=== PATIENT | male | born 1930 | race Caucasian/White ===

== ENCOUNTER 2017-01-14 15:29 | Observation (INO) | payer MEDICARE, BC ==
--- NOTE | 2017-01-14 15:46 | EDM.PDOC ---
ED HPI GENERAL MEDICAL PROBLEM - General Chief Complaint: Respiratory Problem Stated Complaint: TROUBLE BREATHING Time Seen by Provider: 01/14/17 15:46 Source of Information: Reports: Patient, Family History Limitations: Reports: No Limitations - History of Present Illness Onset: Other (short of breath today. no fevers/chllls. no chest pain. no swelling in lower ext. no cough. no change in meds.) Duration: Other (family states he "occasionally has these episodes". he had a stress test in Aug 2016 and lexiscan 08/2016 which showed no acute changes.) - Related Data Allergies Allergy/AdvReac Type Severity Reaction Status Date / Time alprazolam Allergy Other Verified 01/14/17 15:36 tamsulosin [From Flomax] AdvReac Dizziness Verified 01/14/17 15:36 Home Meds: Home Meds Aspirin [Halfprin] 81 mg PO DAILY 08/20/16 [History] Carbidopa/Levodopa [Carbidopa-Levodopa 25-250] 1.5 tab PO 08/20/16 [ History] Cyanocobalamin (Vitamin B-12) [B-12] 1 injection INJECT .EVERY 30 DAYS 08/20/16 [History] Docusate Sodium [Colace] 100 mg PO BID 08/20/16 [History] Escitalopram [Lexapro] 20 mg PO DAILY 08/20/16 [History] Mirtazapine [Mirtazapine] 2 tab PO BEDTIME 08/20/16 [History] Omeprazole 20 mg PO BID 08/20/16 [History] Polyethylene Glycol 3350 [Miralax] 17 g PO DAILY 08/20/16 [History] Simvastatin [Simvastatin] 20 mg PO BEDTIME 08/20/16 [History] busPIRone [Buspar] 20 mg PO BID 08/20/16 [History] hydrOXYzine HCl [Atarax] 25 mg PO TID PRN 08/20/16 [History] Past Medical History Other HEENT History: 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 Cardiovascular History: Reports: High Cholesterol, Hypertension, Pacemaker Respiratory History: Reports: None Gastrointestinal History: Reports: GERD, PUD, Other (See Below) Other Gastrointestinal History: HX OF HAIR ESOPHAGUS Genitourinary History: Reports: None Musculoskeletal History: Reports: Arthritis, Other (See Below) Other Musculoskeletal History: DEGENERATIVE JOINT DISEASE Neurological History: Reports: Head Trauma, Parkinson's Psychiatric History: Reports: Anxiety Endocrine/Metabolic History: Reports: None Hematologic History: Reports: Anemia Immunologic History: Reports: None Oncologic (Cancer) History: Reports: None Dermatologic History: Reports: None - Infectious Disease History Infectious Disease History: Reports: Chicken Pox, Measles, Mumps - Past Surgical History Cardiovascular Surgical History: Reports: Pacer, Other (See Below) Male Surgical History: Reports: TURP-Transurethral Resection of Prostate Social & Family History - Family History Family Medical History: Noncontributory - Tobacco Use Smoking Status *Q: Never Smoker - Caffeine Use Caffeine Use: Reports: Coffee - Recreational Drug Use Recreational Drug Use: No - Living Situation & Occupation Living situation: Reports: , with Spouse Occupation: Retired ED ROS GENERAL - Review of Systems Review Of Systems: See Below Constitutional: Reports: No Symptoms HEENT: Reports: No Symptoms Respiratory: Reports: Shortness of Breath Cardiovascular: Reports: No Symptoms Endocrine: Reports: No Symptoms GI/Abdominal: Reports: No Symptoms : Reports: No Symptoms Musculoskeletal: Reports: No Symptoms Skin: Reports: No Symptoms Neurological: Reports: No Symptoms Psychiatric: Reports: No Symptoms Hematologic/Lymphatic: Reports: No Symptoms Immunologic: Reports: No Symptoms ED EXAM, GENERAL - Physical Exam Exam: See Below Exam Limited By: No Limitations General Appearance: Alert Ears: Normal External Exam, Normal Canal, Hearing Grossly Normal, Normal TMs Nose: Normal Inspection, Normal Mucosa Throat/Mouth: Normal Inspection, Normal Lips, Normal Teeth, Normal Gums, Normal Oropharynx Head: Atraumatic, Normocephalic Neck: Normal Inspection, Supple, Non-Tender Respiratory/Chest: No Respiratory Distress, Lungs Clear, Normal Breath Sounds, No Accessory Muscle Use, Chest Non-Tender Cardiovascular: Normal Peripheral Pulses, Regular Rate, Rhythm GI/Abdominal: Normal Bowel Sounds, Soft, Non-Tender Back Exam: Normal Inspection Extremities: Normal Inspection, Normal Range of Motion, Non-Tender, No Pedal Edema Neurological: Alert, Oriented Psychiatric: Normal Affect Skin Exam: Warm, Dry, Intact, Normal Color Lymphatic: No Adenopathy EKG INTERPRETATION EKG Interpretation Comments: atrial paced rate 71, prolonged SC interval 262 Course - Vital Signs Text/Narrative:: Discussed with Dr. Solorzano, hospitalist, pt will be admitted obs for dyspnea. risk factors: prior CAD with pacemaker. Last Recorded V/S: Last Vital Signs Temp 36.2 C 01/14/17 15:46 Pulse 69 01/14/17 15:46 Resp 18 01/14/17 15:46 BP 107/62 01/14/17 15:46 Pulse Ox 100 01/14/17 15:46 - Orders/Labs/Meds Orders: Active Orders 24 hr Category Date Time Status EKG 12 Lead [EKG Documentation Completion] [RC] URGENT Care 01/14/17 15:53 Active Labs: Laboratory Tests 01/14/17 01/14/17 Range/Units 16:12 16:12 WBC 5.4 (5.0-10.0) 10^3/uL RBC 3.97 L (4.6-6.2) 10^6/uL Hgb 12.1 L (14.0-18.0) g/dL Hct 36.4 L (40.0-54.0) % MCV 91.7 (80-100) fL MCH 30.5 (27.0-34.0) pg MCHC 33.2 (33.0-35.0) g/dL Plt Count 154 (150-450) 10^3/uL Neut % (Auto) 53.6 (42.2-75.2) % Lymph % (Auto) 29.1 (20.5-50.1) % [place] % (Auto) 13.2 H (2-8) % Eos % (Auto) 3.7 H (1.0-3.0) % Baso % (Auto) 0.4 (0.0-1.0) % Sodium 138 (135-145) mmol/L Potassium 4.2 (3.6-5.0) mmol/L Chloride 105 (101-111) mmol/L Carbon Dioxide 25.0 (21.0-31.0) mmol/L Anion Gap 12.2 BUN 25 H (7-18) mg/dL Creatinine 1.2 (0.6-1.3) mg/dL Est Cr Clr Drug Dosing 54.77 mL/min Estimated GFR (MDRD) 58 BUN/Creatinine Ratio 20.83 Glucose 114 H (74-105) mg/dL Calcium 8.8 (8.4-10.2) mg/dl Total Bilirubin 0.4 (0.2-1.0) mg/dL AST 22 (10-42) IU/L ALT 8 L (10-60) IU/L Alkaline Phosphatase 51 (42-121) IU/L Troponin I < 0.02 (0.00-0.02) ng/ml B-Natriuretic Peptide 70 (0-100) pg/ml Total Protein 6.1 L (6.7-8.2) g/dl Albumin 3.9 (3.2-5.5) g/dl Globulin 2.2 Albumin/Globulin Ratio 1.77 Departure - Departure Time of Disposition: 17:06 Disposition: Refer to Observation Condition: good Clinical Impression: Dyspnea - Discharge Information Forms: ED Department Discharge - My Orders Last 24 Hours: My Active Orders 01/14/17 15:53 EKG 12 Lead [EKG Documentation Completion] [RC] URGENT - Assessment/Plan Last 24 Hours: My Active Orders 01/14/17 15:53 EKG 12 Lead [EKG Documentation Completion] [RC] URGENT
[2017-01-14 16:39] LABS: CHLORIDE,CL 105 mmol/L (101-111); SODIUM,NA 138 mmol/L (135-145)
--- NOTE | 2017-01-14 16:43 | CR ---
Clinical history: 86-year-old male complaining of shortness of breath. Interpretation: PA lateral chest reveals hypertrophic spondylosis and mildly kyphotic, scoliotic spine. Cardiac pacemaker (leads intact). Normal cardiac silhouette without alveolar edema or dependent effusion. No lung mass, hilar lymphadenopathy or focal lobar pneumonia. No atelectasis/collapse. No pneumothorax. CONCLUSION: No acute cardiopulmonary abnormality.
[2017-01-14] MEDS ORDERED: hydrOXYzine HCl 25 MG Tab PO PRN (18:18)
[2017-01-14] MEDS ORDERED: Acetaminophen 325 MG Tab PO PRN (18:25)
[2017-01-14] MEDS ORDERED: Sodium Chloride 0.9% 10 ML Syringe FLUSH PRN (18:25)
--- NOTE | 2017-01-14 18:33 | PCM.HP ---
H&P History of Present Illness - General Date of Service: 01/14/17 Admit Problem/Dx: Admission Diagnosis/Problem Admission Diagnosis/Problem Dyspnea Source of Information: Patient, Family () - History of Present Illness Initial Comments - Free Text/Narative: the patient is an 86-year-old gentleman with a history of advanced Parkinson's disease, anxiety, prior pacemaker placement. he has been followed by neurology for Parkinson's disease and Dr. Scott and more recently dr. García and from cardiology for his heart. The patient has been complaining of episodes of shortness of breath. the is giving most of the history the patient has very weak voice do to his Parkinson's disease. this has been his baseline according to the . These episodes of shortness of breath has been happening for months, was evaluated by cardiology and felt that the patient is doing well. There is no associated chest pain, fever or chills.no obvious exacerbating factors. Today the patient was sitting in a chair when he was complaining of shortness of breath with the . This lasted about an hour and has completely resolved since. There is no leg swelling, and no associated symptoms. The patient has history of anxiety and the has felt that this might relate to these episodes. - Related Data Allergies/Adverse Reactions: Allergies Allergy/AdvReac Type Severity Reaction Status Date / Time alprazolam Allergy Other Verified 01/14/17 15:36 tamsulosin [From Flomax] AdvReac Dizziness Verified 01/14/17 15:36 Home Medications: Home Meds Aspirin [Halfprin] 81 mg PO DAILY 08/20/16 [History] Carbidopa/Levodopa [Carbidopa-Levodopa 25-250] 1.5 tab PO DAY 08/20/16 [ History] Cyanocobalamin (Vitamin B-12) [B-12] 1 injection INJECT .EVERY 30 DAYS 08/20/16 [History] Docusate Sodium [Colace] 100 mg PO BID 08/20/16 [History] Escitalopram [Lexapro] 20 mg PO DAILY 08/20/16 [History] Mirtazapine [Mirtazapine] 2 tab PO BEDTIME 08/20/16 [History] Omeprazole 20 mg PO BID 08/20/16 [History] Polyethylene Glycol 3350 [Miralax] 17 g PO DAILY 08/20/16 [History] Simvastatin [Simvastatin] 20 mg PO BEDTIME 08/20/16 [History] busPIRone [Buspar] 20 mg PO BID 08/20/16 [History] hydrOXYzine HCl [Atarax] 25 mg PO TID PRN 08/20/16 [History] Past Medical History HEENT History: Reports: Other (See Below) Other HEENT History: 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 Cardiovascular History: Reports: High Cholesterol, Hypertension, Pacemaker Respiratory History: Reports: None Gastrointestinal History: Reports: GERD, PUD, Other (See Below) Other Gastrointestinal History: HX OF HAIR ESOPHAGUS Genitourinary History: Reports: None Musculoskeletal History: Reports: Arthritis, Other (See Below) Other Musculoskeletal History: DEGENERATIVE JOINT DISEASE Neurological History: Reports: Head Trauma, Parkinson's Psychiatric History: Reports: Anxiety Endocrine/Metabolic History: Reports: None Hematologic History: Reports: Anemia Immunologic History: Reports: None Oncologic (Cancer) History: Reports: None Dermatologic History: Reports: None - Infectious Disease History Infectious Disease History: Reports: Chicken Pox, Measles, Mumps - Past Surgical History Cardiovascular Surgical History: Reports: Pacer, Other (See Below) Male Surgical History: Reports: TURP-Transurethral Resection of Prostate Social & Family History - Family History Family Medical History: Noncontributory - Tobacco Use Smoking Status *Q: Never Smoker Used Tobacco, but Quit: No - Caffeine Use Caffeine Use: Reports: Coffee - Recreational Drug Use Recreational Drug Use: No - Living Situation & Occupation Living situation: Reports: , with Spouse Occupation: Retired H&P Review of Systems - Review of Systems: Review Of Systems: See Below General: Denies: Fever, Chills Pulmonary: Reports: Shortness of Breath. Denies: Wheezing, Pleuritic Chest Pain , Cough, Sputum, Hemoptysis Cardiovascular: Denies: Chest Pain, Edema Gastrointestinal: Denies: Abdominal Pain Genitourinary: Denies: Dysuria Psychiatric: Denies: Confusion Neurological: Reports: Gait Disturbance Exam - Exam Exam: See Below - Vital Signs Vital Signs: Last Vital Signs Temp 36.2 C 01/14/17 15:46 Pulse 74 01/14/17 17:06 Resp 18 01/14/17 17:06 BP 138/85 01/14/17 17:06 Pulse Ox 94 L 01/14/17 17:06 Weight: 170 kg - Exam Quality Assessment: No: Supplemental Oxygen General: Alert, Other (Difficult to interact because his voice is very weak, difficult to understand) Neck: Supple Lungs: Clear to Auscultation, Normal Respiratory Effort. No: Decreased Breath Sounds Cardiovascular: Regular Rate, Regular Rhythm Abdomen: Normal Bowel Sounds, Soft Extremities: Normal Inspection. No: Edema Skin: Warm, Dry Neurological: Abnormal Gait (tremor). No: Normal Speech Psychiatric: Alert, Normal Affect, Normal Mood - Patient Data Result Diagrams: 01/14/17 16:12 01/14/17 16:12 EKG INTERPRETATION EKG Date: 01/14/17 Rhythm: other (Atrial paced) *Q Meaningful Use (ADM) - VTE *Q VTE Criteria *Q: - Stroke *Q Stroke Criteria *Q: - AMI *Q AMI Criteria *Q: - Problem List (1) Dyspnea SNOMED Code(s): 284066402 ICD Code: R06.00 - DYSPNEA, UNSPECIFIED Status: Acute Current Visit: Yes Problem List Initiated/Reviewed/Updated: Yes Orders Last 24hrs: Active Orders 24 hr Category Date Time Status Patient Status [ADT] Routine ADT 01/14/17 18:25 Ordered Antiembolic Devices [RC] PER UNIT ROUTINE Care 01/14/17 18:26 Ordered Oxygen Therapy [RC] PRN Care 01/14/17 18:25 Ordered Peripheral IV Care [RC] . DIRECTED Care 01/14/17 18:26 Ordered Telemetry Monitoring [Cardiac Monitoring] [RC] . Care 01/14/17 18:24 Ordered DIRECTED Up With Assistance [RC] ASDIRECTED Care 01/14/17 18:25 Ordered VTE/DVT Education [RC] PER UNIT ROUTINE Care 01/14/17 18:25 Ordered Vital Signs [RC] Q4H Care 01/14/17 18:25 Ordered Regular Diet [DIET] Diet 01/14/17 Breakfast Ordered TROPONIN I [CHEM] AM Lab 01/15/17 05:11 Ordered Acetaminophen [Tylenol] Med 01/14/17 18:25 Ordered 650 mg PO Q4H PRN Aspirin [Halfprin] Med 01/15/17 09:00 Ordered 81 mg PO DAILY Carbidopa/Levodopa [Sinemet 25-250 mg] Med 01/14/17 21:00 Ordered 1.5 tab PO 5XDAY Docusate Sodium [Colace] Med 01/14/17 21:00 Ordered 100 mg PO BID Escitalopram [Lexapro] Med 01/15/17 09:00 Ordered 20 mg PO DAILY Mirtazapine [Remeron] Med 01/14/17 21:00 Ordered 2 tab PO BEDTIME Omeprazole Med 01/14/17 21:00 Ordered 20 mg PO BID Polyethylene Glycol 3350 [MiraLAX] Med 01/15/17 09:00 Ordered 17 gm PO DAILY Simvastatin [Simvastatin] Med 01/14/17 21:00 Ordered 20 mg PO BEDTIME Sodium Chloride 0.9% [Saline Flush] Med 01/14/17 18:25 Ordered 10 ml FLUSH ASDIRECTED PRN busPIRone [Buspar] Med 01/14/17 21:00 Ordered 20 mg PO BID hydrOXYzine HCl [Atarax] Med 01/14/17 18:18 Ordered 25 mg PO TID PRN Antiembolic Hose [OM.PC] Per Unit Routine Oth 01/14/17 18:26 Ordered Peripheral IV Insertion Adult [OM.PC] Routine Oth 01/14/17 18:25 Ordered Saline Lock Insert [OM.PC] Routine Oth 01/14/17 18:25 Ordered Resuscitation Status Routine Resus Stat 01/14/17 18:25 Ordered Medication Orders Acetaminophen (Tylenol) 650 mg PO Q4H PRN PRN Reason: Pain (Mild 1-3)/fever Aspirin (Halfprin) 81 mg PO DAILY MAX Carbidopa/Levodopa (Sinemet 25-250 Mg) 1.5 tab PO 5XDAY MAX Docusate Sodium (Colace) 100 mg PO BID MAX Hydroxyzine HCl (Atarax) 25 mg PO TID PRN PRN Reason: anxiety, itching Mirtazapine (Remeron) mg PO BEDTIME MAX Non-Formulary Medication (Escitalopram [Lexapro]) 20 mg PO DAILY MAX Non-Formulary Medication (Simvastatin [Simvastatin]) 20 mg PO BEDTIME MAX Non-Formulary Medication (Buspirone [Buspar]) 20 mg PO BID MAX Omeprazole (Omeprazole) 20 mg PO BID MAX Polyethylene Glycol (Miralax) 17 gm PO DAILY MAX Sodium Chloride (Saline Flush) 10 ml FLUSH ASDIRECTED PRN PRN Reason: Keep Vein Open Assessment/Plan Comment:: 1.the patient presented with dyspnea Apparently this is not a new complaint, this has been on and off for months. the patient's cardiac workup in the emergency room shows no acute ischemic concern. Given the recent stress test that make it even less likely the monitor the patient on telemetry for arrhythmia, repeat troponin in the morning The shortness of breath I believe most likely relates to the patient's advanced Parkinson's disease. He has a very weak voice, He might benefit from further pulmonary evaluation with pulmonary function test studies. according to the patient and the patient's the patient has no swallowing difficulty. Anxiety is also high on the differential. Will monitor the patient during this admission 2. Parkinson's disease Appears advanced Continue Sinemet, followup with neurology High risk for falling 3. DVT prophylaxis with subcutaneous heparin
[2017-01-14] MEDS: Omeprazole 20 MG Cap.CR PO SCH (19:59)
[2017-01-14] MEDS ORDERED: Mirtazapine 15 MG Tab PO SCH ×2 (21:00)
[2017-01-14] MEDS ORDERED: Simvastatin 10 MG Tab PO SCH (21:00)
[2017-01-14] MEDS: busPIRone 15 MG Tab PO SCH (22:39)
[2017-01-14] MEDS: Carbidopa/Levodopa 25-250 MG Tab PO SCH (22:43)
[2017-01-14] MEDS: Docusate Sodium 100 MG Cap PO SCH (22:45)
[2017-01-15] MEDS ORDERED: Escitalopram 10 MG Tab PO SCH (09:00)
[2017-01-15] MEDS ORDERED: Polyethylene Glycol 3350 Powder 17 GM Packet PO SCH (09:00)
[2017-01-15] MEDS ORDERED: Aspirin 81 MG Tab.EC PO SCH (09:00)
[2017-01-15] MEDS: Omeprazole 20 MG Cap.CR PO SCH (09:27)
[2017-01-15] MEDS: Carbidopa/Levodopa 25-250 MG Tab PO SCH ×3 (09:27→16:01)
[2017-01-15] MEDS: busPIRone 15 MG Tab PO SCH (09:29)
[2017-01-15] MEDS: Docusate Sodium 100 MG Cap PO SCH (09:30)
--- NOTE | 2017-01-15 11:12 | PCM.DCSUM1 ---
Discharge Summary - Hospital Course Free Text/Narrative:: the patient is an 86-year-old gentleman with a history of advanced Parkinson's disease, anxiety, prior pacemaker placement. he has been followed by neurology for Parkinson's disease and Dr. Scott and more recently dr. García and from cardiology. The patient has been complaining of episodes of shortness of breath. These episodes of shortness of breath has been happening for months, was evaluated by cardiology and felt that the patient is doing well. There is no associated chest pain, fever or chills.no obvious exacerbating factors. on the day of admission the patient was sitting in a chair and he was complaining of shortness of breath with the . This lasted about an hour and has completely resolved without intervention. There Wagner no leg swelling, and no associated symptoms. The patient has history of anxiety and the has felt that this might relate to these episodes. 1.the patient presented with dyspnea Apparently this is not a new complaint, this has been on and off for months. the patient's cardiac workup showed no acute ischemic concern. Given the recent stress test that make it even less likely The shortness of breath I believe most likely relates to the patient's advanced Parkinson's disease. He has a very weak voice, He might benefit from further pulmonary evaluation with pulmonary function test studies. according to the patient and the patient's the patient has no swallowing difficulty. Anxiety is also high on the differential. I recommended the patient to followup with his primary care physician and then I would suggest further pulmonary function testing. 2. Parkinson's disease Appears advanced Continue Sinemet, followup with neurology High risk for falling - Discharge Data Discharge Date: 01/15/17 Discharge Disposition: Home, Self-Care 01 Condition: Good - Discharge Diagnosis/Problem(s) (1) Dyspnea SNOMED Code(s): 576321960 ICD Code: R06.00 - DYSPNEA, UNSPECIFIED Status: Acute Current Visit: Yes - Patient Instructions Diet: Usual Diet as Tolerated Activity: As Tolerated - Discharge Plan Home Medications: Home Meds Aspirin [Halfprin] 81 mg PO DAILY 08/20/16 [History] Carbidopa/Levodopa [Carbidopa-Levodopa 25-250] 1.5 tab PO 5XDAY 08/20/16 [ History] Cyanocobalamin (Vitamin B-12) [B-12] 1 injection INJECT .EVERY 30 DAYS 08/20/16 [History] Docusate Sodium [Colace] 100 mg PO BID 08/20/16 [History] Escitalopram [Lexapro] 20 mg PO DAILY 08/20/16 [History] Mirtazapine 2 tab PO BEDTIME 08/20/16 [History] Omeprazole 20 mg PO BID 08/20/16 [History] Polyethylene Glycol 3350 [Miralax] 17 g PO DAILY 08/20/16 [History] Simvastatin 20 mg PO BEDTIME 08/20/16 [History] busPIRone [Buspar] 20 mg PO BID 08/20/16 [History] hydrOXYzine HCl [Atarax] 25 mg PO TID PRN 08/20/16 [History] Patient Handouts: Shortness of Breath, [id number] Referrals: Cleopatra Angela PA [Primary Care Provider] - (in 3-4 days) - Discharge Summary/Plan Comment DC Time >30 min.: No - Review of Systems General: Denies: Fever Pulmonary: Denies: shortness of breath, cough, wheezing Cardiovascular: Denies: Chest Pain Gastrointestinal: Denies: Abdominal pain Genitourinary: Denies: dysuria Neurological: Reports: Gait Disturbance - Patient Data Vitals - Most Recent: Last Vital Signs Temp 36.6 C 01/15/17 08:34 Pulse 77 01/15/17 08:34 Resp 20 01/15/17 08:34 BP 144/86 H 01/15/17 08:34 Pulse Ox 99 01/15/17 08:34 Weight - Most Recent: 170 kg I&O - Last 24 hours: Intake & Output 01/14/17 01/15/17 01/15/17 22:59 06:59 14:59 Intake Total 1000 750 Output Total 1200 715 Balance -200 35 Lab Results - Last 24 hrs: Laboratory Results - last 24 hr 01/15/17 Range/Units 06:23 Troponin I < 0.02 (0.00-0.02) ng/ml Med Orders - Current: Current Medications Acetaminophen (Tylenol) 650 mg PO Q4H PRN PRN Reason: Pain (Mild 1-3)/fever Aspirin (Halfprin) 81 mg PO DAILY [facility] Last Admin: 01/15/17 09:31 Dose: 81 mg Buspirone HCl (Buspar) 20 mg PO BID [facility] Last Admin: 01/15/17 09:29 Dose: 20 mg Carbidopa/Levodopa (Sinemet 25-250 Mg) 1.5 tab PO 5XDAY [facility] Last Admin: 01/15/17 10:40 Dose: 1.5 tab Docusate Sodium (Colace) 100 mg PO BID [facility] Last Admin: 01/15/17 09:30 Dose: 100 mg Escitalopram Oxalate (Lexapro) 20 mg PO DAILY [facility] Last Admin: 01/15/17 09:31 Dose: 20 mg Hydroxyzine HCl (Atarax) 25 mg PO TID PRN PRN Reason: anxiety, itching Last Admin: 01/14/17 22:43 Dose: 25 mg Mirtazapine (Remeron) 15 mg PO BEDTIME [facility] Last Admin: 01/14/17 22:46 Dose: 15 mg Omeprazole (Omeprazole) 20 mg PO BIDMEALS [facility] Last Admin: 01/15/17 09:27 Dose: 20 mg Polyethylene Glycol (Miralax) 17 gm PO DAILY [facility] Last Admin: 01/15/17 09:31 Dose: 17 gm Simvastatin (Zocor) 20 mg PO BEDTIME [facility] Last Admin: 01/14/17 22:45 Dose: 20 mg Sodium Chloride (Saline Flush) 10 ml FLUSH ASDIRECTED PRN PRN Reason: Keep Vein Open Discontinued Medications Mirtazapine (Remeron) mg PO BEDTIME [facility] - Exam General: Reports: alert, oriented Neck: Reports: supple Lungs: Reports: Clear to auscultation, Normal respiratory effort, Other (weak voice, but appeared to have low forced expiratory volumes) Cardiovascular: Reports: Regular Rate, Regular Rhythm Abdomen: Reports: bowel sounds present, soft, no tenderness, no distension Skin: Reports: warm, dry, intact *Q Meaningful Use (DIS) - VTE *Q VTE Criteria *Q: - Stroke *Q Stroke Criteria *Q: - AMI *Q AMI Criteria *Q:
[2017-01-15 12:01] VITALS: BP 142/84
--- NOTE | 2017-01-19 10:51 | EKG ---
01/14/2017- BARTOLOME MG - EKG per my reading shows sinus rhythm with episodes of atrial paced complexes. [facility] /[id number]
== END 2017-01-15 12:05 | disposition home or self-care (01) ==
LOC: DL.ED 15:29 → UNDOADMOB 18:01 → DL.MS 18:01
PROVIDERS: ADMIT Internal Medicine; ATTEND Internal Medicine
DX: R06.00 Dyspnea, unspecified (principal); R06.02 Shortness of breath; F41.9 Anxiety disorder, unspecified; G20 Parkinson's disease; Z79.82 Long term (current) use of aspirin; Z79.899 Other long term (current) drug therapy
CPT/HCPCS: 36415; 71020; 80053; 83880; 84484; 85025; 93005; 99285; A9270; 93010; 99284; G0378

== ENCOUNTER 2017-08-27 19:37 | Observation (INO) | payer MEDICARE, BC ==
[2017-08-27 20:27] LABS: CHLORIDE,CL 104 mmol/L (101-111); SODIUM,NA 139 mmol/L (135-145)
--- NOTE | 2017-08-27 21:02 | EDM.PDOC ---
ED HPI GENERAL MEDICAL PROBLEM - General Chief Complaint: Chest Pain Stated Complaint: HAS PARKINSONS, SOMETHING FEELS DIFFERENT, Time Seen by Provider: 08/27/17 19:45 Source of Information: Reports: Patient, Family, RN History Limitations: Reports: Physical Impairment (advanced parkinson's with limited voice projection) - History of Present Illness INITIAL COMMENTS - FREE TEXT/NARRATIVE: ED per w/c with . Patient c/o having difficulty breathing. Has had some productive cough at home recently, yellow phlegm. reported took 6 baby aspirin at home Prior and told her he needed to go to ER. Patient reported pain to right side of chest. Difficult to obtain history from patient due to lack of voice projection. states she has only been to him for 10 years so does not know much of earlier hx. Pacemaker scheduled for replacement on Tuesday by Dr. Oconnor. States pacemaker for slow heart rate. Denies pain at present. Right Chest Pain Score (Numeric/FACES): 6 - Related Data Allergies Allergy/AdvReac Type Severity Reaction Status Date / Time alprazolam Allergy Other Verified 08/27/17 23:31 tamsulosin [From Flomax] AdvReac Dizziness Verified 08/27/17 23:31 Home Meds: Home Meds Aspirin [Halfprin] 81 mg PO DAILY 08/20/16 [History] Carbidopa/Levodopa [Carbidopa-Levodopa 25-250] 20 - 250 tab PO DAY 08/20/16 [ History] Cyanocobalamin (Vitamin B-12) [B-12] 1 injection INJECT .EVERY 30 DAYS 08/20/16 [History] Docusate Sodium [Colace] 100 mg PO BID PRN 08/20/16 [History] Escitalopram [Lexapro] 20 mg PO DAILY 08/20/16 [History] Mirtazapine 2 tab PO BEDTIME 08/20/16 [History] Omeprazole 20 mg PO BID 08/20/16 [History] Polyethylene Glycol 3350 [Miralax] 17 g PO DAILY 08/20/16 [History] Simvastatin 20 mg PO BEDTIME 08/20/16 [History] busPIRone [Buspar] 20 mg PO BID 08/20/16 [History] Past Medical History HEENT History: Reports: Other (See Below) Other HEENT History: 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 Cardiovascular History: Reports: High Cholesterol, Hypertension, Pacemaker Respiratory History: Reports: None Gastrointestinal History: Reports: GERD, PUD, Other (See Below) Other Gastrointestinal History: HX OF HAIR ESOPHAGUS Genitourinary History: Reports: None Musculoskeletal History: Reports: Arthritis, Other (See Below) Other Musculoskeletal History: DEGENERATIVE JOINT DISEASE Neurological History: Reports: Head Trauma, Parkinson's Psychiatric History: Reports: Anxiety Endocrine/Metabolic History: Reports: None Hematologic History: Reports: Anemia Immunologic History: Reports: None Oncologic (Cancer) History: Reports: None Dermatologic History: Reports: None - Infectious Disease History Infectious Disease History: Reports: Chicken Pox, Measles, Mumps - Past Surgical History Cardiovascular Surgical History: Reports: Pacer Male Surgical History: Reports: TURP-Transurethral Resection of Prostate Social & Family History - Family History Family Medical History: Noncontributory - Tobacco Use Smoking Status *Q: Never Smoker Used Tobacco, but Quit: No Second Hand Smoke Exposure: No - Caffeine Use Caffeine Use: Reports: Coffee - Recreational Drug Use Recreational Drug Use: No - Living Situation & Occupation Living situation: Reports: , with Spouse Occupation: Retired ED ROS GENERAL - Review of Systems Review Of Systems: See Below Constitutional: Reports: Weakness. Denies: Fever, Chills HEENT: Reports: No Symptoms, Glasses Respiratory: Reports: Shortness of Breath (worse when lying down), Cough, Sputum (yellow) GI/Abdominal: Reports: No Symptoms : Reports: No Symptoms Musculoskeletal: Reports: No Symptoms, Muscle Stiffness (r/t parkinson's ) Skin: Reports: No Symptoms Neurological: Reports: Pre-Existing Deficit, Tremors Psychiatric: Reports: Other (hx anxiety) ED EXAM, GENERAL - Physical Exam Exam: See Below Exam Limited By: No Limitations General Appearance: Alert, No Apparent Distress, Anxious Eye Exam: Bilateral Eye: EOMI Ears: Normal External Exam, Normal TMs Nose: Normal Inspection Throat/Mouth: Normal Inspection Head: Atraumatic, Normocephalic Neck: Normal Inspection Respiratory/Chest: No Respiratory Distress, Decreased Breath Sounds (shallow at rest, good exchange with prompt, bilateral clear) Cardiovascular: Regular Rate, Rhythm, No Edema GI/Abdominal: Normal Bowel Sounds, Soft, Non-Tender Back Exam: Normal Inspection Extremities: No: Normal Range of Motion Neurological: Alert, Oriented, Other (advanced parkinson's , weak, stiff movements) Psychiatric: Anxious Skin Exam: Warm, Dry, Intact, Normal Color, No Rash EKG INTERPRETATION Rhythm: NSR Rate (Beats/Min): 71 P-Wave: Enlarged Course - Vital Signs Last Recorded V/S: Last Vital Signs Temp 97.6 F 08/27/17 21:44 Pulse 70 08/27/17 21:44 Resp 16 08/27/17 21:44 BP 137/77 08/27/17 21:44 Pulse Ox 98 08/27/17 21:44 - Orders/Labs/Meds Orders: Active Orders 24 hr Category Date Time Status EKG 12 Lead [EKG Documentation Completion] [RC] URGENT Care 08/27/17 19:50 Active CULTURE BLOOD [BC] Stat Lab 08/27/17 19:58 Received Medication Orders Acetaminophen (Tylenol) 650 mg PO Q4H PRN PRN Reason: Pain (Mild 1-3)/fever Aspirin (Halfprin) 81 mg PO DAILY [facility] Buspirone HCl (Buspar) 20 mg PO BID [facility] Carbidopa/Levodopa (Sinemet 25-250 Mg) 1.5 tab PO 5XDAY [facility] Cyanocobalamin (Vitamin B12) 1,000 mcg IM ASDIRECTED [facility] Docusate Sodium (Colace) 100 mg PO BID PRN PRN Reason: Constipation Last Admin: 08/27/17 22:30 Dose: 100 mg Escitalopram Oxalate (Lexapro) 20 mg PO DAILY [facility] Heparin Sodium (Porcine) (Heparin Sodium) 5,000 units SUBCUT Q12H [facility] Last Admin: 08/27/17 22:28 Dose: 5,000 units Sodium Chloride (Normal Saline) 1,000 mls @ 75 mls/hr IV ASDIRECTED MAX Last Admin: 08/27/17 22:38 Dose: 75 mls/hr Mirtazapine (Remeron) 30 mg PO BEDTIME MAX Omeprazole (Omeprazole) 20 mg PO BID [facility] Polyethylene Glycol (Miralax) 17 gm PO DAILY MAX Simvastatin (Zocor) 20 mg PO BEDTIME [facility] Labs: Laboratory Tests 08/27/17 08/27/17 08/27/17 Range/Units 19:58 19:58 19:58 WBC 5.7 (5.0-10.0) 10^3/uL RBC 4.02 L (4.6-6.2) 10^6/uL Hgb 12.1 L (14.0-18.0) g/dL Hct 36.5 L (40.0-54.0) % MCV 90.8 (80-100) fL MCH 30.1 (27.0-34.0) pg MCHC 33.2 (33.0-35.0) g/dL Plt Count 156 (150-450) 10^3/uL Neut % (Auto) 56.1 (42.2-75.2) % Lymph % (Auto) 28.0 (20.5-50.1) % Chaves % (Auto) 11.6 H (2-8) % Eos % (Auto) 3.9 H (1.0-3.0) % Baso % (Auto) 0.4 (0.0-1.0) % PT (9.0-12.0) SEC INR (0.9-1.2) Sodium 139 (135-145) mmol/L Potassium 4.0 (3.6-5.0) mmol/L Chloride 104 (101-111) mmol/L Carbon Dioxide 27.0 (21.0-31.0) mmol/L Anion Gap 12.0 BUN 21 H (7-18) mg/dL Creatinine 0.9 (0.6-1.3) mg/dL Est Cr Clr Drug Dosing 63.52 mL/min Estimated GFR (MDRD) > 60 BUN/Creatinine Ratio 23.33 Glucose 127 H (74-105) mg/dL Lactic Acid (0.5-2.2) mmol/L Calcium 9.0 (8.4-10.2) mg/dl Magnesium 2.0 (1.8-2.5) mg/dL Total Bilirubin 0.7 (0.2-1.0) mg/dL AST 23 (10-42) IU/L ALT 7 L (10-60) IU/L Alkaline Phosphatase 56 (42-121) IU/L CK-MB (CK-2) 4.50 (0.4-4.7) ng/mL Troponin I < 0.02 (0.00-0.02) ng/ml B-Natriuretic Peptide 87 (0-100) pg/ml Total Protein 6.3 L (6.7-8.2) g/dl Albumin 4.0 (3.2-5.5) g/dl Globulin 2.3 Albumin/Globulin Ratio 1.74 08/27/17 08/27/17 Range/Units 19:58 19:58 WBC (5.0-10.0) 10^3/uL RBC (4.6-6.2) 10^6/uL Hgb (14.0-18.0) g/dL Hct (40.0-54.0) % MCV (80-100) fL MCH (27.0-34.0) pg MCHC (33.0-35.0) g/dL Plt Count (150-450) 10^3/uL Neut % (Auto) (42.2-75.2) % Lymph % (Auto) (20.5-50.1) % Chaves % (Auto) (2-8) % Eos % (Auto) (1.0-3.0) % Baso % (Auto) (0.0-1.0) % PT 9.5 (9.0-12.0) SEC INR 0.9 (0.9-1.2) Sodium (135-145) mmol/L Potassium (3.6-5.0) mmol/L Chloride (101-111) mmol/L Carbon Dioxide (21.0-31.0) mmol/L Anion Gap BUN (7-18) mg/dL Creatinine (0.6-1.3) mg/dL Est Cr Clr Drug Dosing mL/min Estimated GFR (MDRD) BUN/Creatinine Ratio Glucose (74-105) mg/dL Lactic Acid 1.4 (0.5-2.2) mmol/L Calcium (8.4-10.2) mg/dl Magnesium (1.8-2.5) mg/dL Total Bilirubin (0.2-1.0) mg/dL AST (10-42) IU/L ALT (10-60) IU/L Alkaline Phosphatase (42-121) IU/L CK-MB (CK-2) (0.4-4.7) ng/mL Troponin I (0.00-0.02) ng/ml B-Natriuretic Peptide (0-100) pg/ml Total Protein (6.7-8.2) g/dl Albumin (3.2-5.5) g/dl Globulin Albumin/Globulin Ratio Meds: Medications Generic Name Dose Route Start Last Admin Trade Name Freq PRN Reason Stop Dose Admin Acetaminophen 650 mg 08/27/17 21:40 Tylenol PO Q4H PRN Pain (Mild 1-3)/fever Aspirin 81 mg 08/28/17 09:00 Halfprin PO DAILY [facility] Buspirone HCl 20 mg 08/28/17 09:00 Buspar PO BID MAX Carbidopa/Levodopa 1.5 tab 08/28/17 08:00 Sinemet 25-250 Mg PO 5XDAY [facility] Cyanocobalamin 1,000 mcg 08/27/17 22:15 Vitamin B12 IM ASDIRECTED MAX Docusate Sodium 100 mg 08/27/17 21:54 08/27/17 22:30 Colace PO 100 mg BID PRN Administration Constipation Escitalopram Oxalate 20 mg 08/28/17 09:00 Lexapro PO DAILY [facility] Heparin Sodium (Porcine) 5,000 units 08/27/17 21:45 08/27/17 22:28 Heparin Sodium SUBCUT 5,000 units Q12H MAX Administration Sodium Chloride 1,000 mls @ 75 mls/hr 08/27/17 21:45 08/27/17 22:38 Normal Saline IV 75 mls/hr ASDIRECTED MAX Administration Mirtazapine 30 mg 08/28/17 21:00 Remeron PO BEDTIME [facility] Omeprazole 20 mg 08/28/17 09:00 Omeprazole PO BID [facility] Polyethylene Glycol 17 gm 08/28/17 09:00 Miralax PO DAILY [facility] Simvastatin 20 mg 08/28/17 21:00 Zocor PO BEDTIME MAX Discontinued Medications Generic Name Dose Route Start Last Admin Trade Name Freq PRN Reason Stop Dose Admin Buspirone HCl 20 mg 08/27/17 22:30 08/27/17 22:35 Buspar PO 08/27/17 22:31 20 mg ONETIME ONE Administration Carbidopa/Levodopa 1.5 tab 08/27/17 22:30 08/27/17 22:34 Sinemet 25-250 Mg PO 08/27/17 22:31 1.5 tab ONETIME ONE Administration Mirtazapine 30 mg 08/27/17 22:30 08/27/17 22:36 Remeron PO 08/27/17 22:31 30 mg ONETIME ONE Administration Simvastatin 20 mg 08/27/17 22:30 08/27/17 22:31 Zocor PO 08/27/17 22:31 20 mg ONETIME ONE Administration - Radiology Interpretation Free Text/Narrative:: CXR normal - Re-Assessments/Exams Free Text/Narrative Re-Assessment/Exam: 08/28/17 00:[address] Thomson accepting to admit for observation with related medical comorbidities. Departure - Departure Time of Disposition: 21:00 Disposition: Refer to Observation Condition: Fair Clinical Impression: Parkinson disease, Anxiety Dyspnea Qualifiers: Dyspnea type: orthopnea Qualified Code(s): R06.01 - Orthopnea - Discharge Information - My Orders Last 24 Hours: My Active Orders 08/27/17 19:50 EKG 12 Lead [EKG Documentation Completion] [RC] URGENT 08/27/17 19:58 CULTURE BLOOD [BC] Stat - Assessment/Plan Last 24 Hours: My Active Orders 08/27/17 19:50 EKG 12 Lead [EKG Documentation Completion] [RC] URGENT 08/27/17 19:58 CULTURE BLOOD [BC] Stat
[2017-08-27] MEDS ORDERED: Acetaminophen 325 MG Tab PO PRN (21:40)
[2017-08-27] MEDS ORDERED: Sodium Chloride 0.9% 1,000 ML IV SCH (21:45)
[2017-08-27] MEDS ORDERED: Docusate Sodium 100 MG Cap PO PRN (21:54)
--- NOTE | 2017-08-27 22:11 | PCM.HP ---
H&P History of Present Illness - General Date of Service: 08/27/17 Admit Problem/Dx: Admission Diagnosis/Problem Admission Diagnosis/Problem Shortness of breath at rest Source of Information: Patient, EMS, Family, RN History Limitations: Reports: No Limitations, Language Barrier, Other (Non- verbal) - History of Present Illness Initial Comments - Free Text/Narative: Patient is 87 y/o male with PMH of HTN, HLD, Anxiety,Parkinson, GERD/PUD, s/p pacemaker placement. He was brought in because of difficult breathing that started this eveing. Patient is non-verbal and could not produce history. History from by bedside. As per patient was vacuuming the carpet in the living room when he all of a sudden became SOB. He Patient sat on the floor and requested to come to [facility] ED. SOB was associate with right sided chest pain. Pain was sharp, non-radiating. The was no other associated symptoms. No nausea, vomiting, diaphoresis, dizziness.Patient anxiety and sometimes present this ways as per spouse. He was recently admitted for for similar presentation. At the time of this assessment patient has no SOB, no chest pain, no palpitation. He notes he feels fine now. He has no history of Asthma. In the ED he was put on supplemental oxygen via nasal cannula. Labs ere normal. Improves with: Reports: None Worsens with: Reports: None Associated Symptoms: Reports: No Other Symptoms Right Chest Pain Score (Numeric/FACES): 6 - Related Data Allergies/Adverse Reactions: Allergies Allergy/AdvReac Type Severity Reaction Status Date / Time alprazolam Allergy Other Verified 08/27/17 23:31 tamsulosin [From Flomax] AdvReac Dizziness Verified 08/27/17 23:31 Home Medications: Home Meds Aspirin [Halfprin] 81 mg PO DAILY 08/20/16 [History] Carbidopa/Levodopa [Carbidopa-Levodopa 25-250] 20 - 250 tab PO DAY 08/20/16 [ History] Cyanocobalamin (Vitamin B-12) [B-12] 1 injection INJECT .EVERY 30 DAYS 08/20/16 [History] Docusate Sodium [Colace] 100 mg PO BID PRN 08/20/16 [History] Escitalopram [Lexapro] 20 mg PO DAILY 08/20/16 [History] Mirtazapine 2 tab PO BEDTIME 08/20/16 [History] Omeprazole 20 mg PO BID 08/20/16 [History] Polyethylene Glycol 3350 [Miralax] 17 g PO DAILY 08/20/16 [History] Simvastatin 20 mg PO BEDTIME 08/20/16 [History] busPIRone [Buspar] 20 mg PO BID 08/20/16 [History] Past Medical History HEENT History: Reports: Other (See Below) Other HEENT History: 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 Cardiovascular History: Reports: High Cholesterol, Hypertension, Pacemaker Respiratory History: Reports: None Gastrointestinal History: Reports: GERD, PUD, Other (See Below) Other Gastrointestinal History: HX OF HAIR ESOPHAGUS Genitourinary History: Reports: None Musculoskeletal History: Reports: Arthritis, Other (See Below) Other Musculoskeletal History: DEGENERATIVE JOINT DISEASE Neurological History: Reports: Head Trauma, Parkinson's Psychiatric History: Reports: Anxiety Endocrine/Metabolic History: Reports: None Hematologic History: Reports: Anemia Immunologic History: Reports: None Oncologic (Cancer) History: Reports: None Dermatologic History: Reports: None - Infectious Disease History Infectious Disease History: Reports: Chicken Pox, Measles, Mumps - Past Surgical History Cardiovascular Surgical History: Reports: Pacer Male Surgical History: Reports: TURP-Transurethral Resection of Prostate Social & Family History - Family History Family Medical History: Noncontributory - Tobacco Use Smoking Status *Q: Never Smoker Used Tobacco, but Quit: No Second Hand Smoke Exposure: No - Caffeine Use Caffeine Use: Reports: Coffee - Recreational Drug Use Recreational Drug Use: No - Living Situation & Occupation Living situation: Reports: , with Spouse Occupation: Retired H&P Review of Systems - Review of Systems: Review Of Systems: See Below General: Reports: No Symptoms HEENT: Reports: No Symptoms Pulmonary: Reports: No Symptoms Cardiovascular: Reports: No Symptoms Gastrointestinal: Reports: No Symptoms Genitourinary: Reports: No Symptoms Musculoskeletal: Reports: No Symptoms Skin: Reports: No Symptoms Psychiatric: Reports: No Symptoms Neurological: Reports: No Symptoms Hematologic/Lymphatic: Reports: No Symptoms Immunologic: Reports: No Symptoms Exam - Exam Exam: See Below - Vital Signs Vital Signs: Last Vital Signs Temp 97.6 F 08/27/17 21:44 Pulse 70 08/27/17 21:44 Resp 16 08/27/17 21:44 BP 137/77 08/27/17 21:44 Pulse Ox 98 08/27/17 21:44 Weight: 165 lb - Exam Quality Assessment: Supplemental Oxygen General: Alert, Oriented, Cooperative HEENT: Conjunctiva Clear Neck: Supple, Trachea Midline, 2 Lungs: Clear to Auscultation, Normal Respiratory Effort Cardiovascular: Regular Rate, Regular Rhythm GI/Abdominal Exam: Normal Bowel Sounds, Soft, Non-Tender, No Organomegaly, No Distention, No Abnormal Bruit, No Mass, Pelvis Stable (Male) Exam: No Hernia, Normal Inspection, Normal Prostate, Circumcised Rectal (Males) Exam: Normal Exam, Normal Rectal Tone, Prostate Normal Back Exam: Normal Inspection, Full Range of Motion, NT Extremities: Normal Inspection, Normal Range of Motion, Non-Tender, No Pedal Edema, Normal Capillary Refill Skin: Warm, Dry, Intact Neurological: Cranial Nerves Intact, Reflexes Equal Bilateral Neuro Extensive - Mental Status: Alert, Oriented x3, Normal Mood/Affect, Normal Cognition Neuro Extensive - Motor, Sensory, Reflexes: CN II-XII Intact, Normal Gait, Normal Reflexes Psychiatric: Alert, Normal Affect, Normal Mood - Patient Data Result Diagrams: 08/27/17 19:58 08/27/17 19:58 *Q Meaningful Use (ADM) - VTE *Q VTE Criteria *Q: - Stroke *Q Stroke Criteria *Q: - AMI *Q AMI Criteria *Q: - Problem List (1) Dyspnea SNOMED Code(s): 248134837 ICD Code: R06.00 - DYSPNEA, UNSPECIFIED Status: Acute Current Visit: Yes Qualifiers: Dyspnea type: orthopnea Qualified Code(s): R06.01 - Orthopnea (2) Shortness of breath SNOMED Code(s): 597533636 ICD Code: R06.02 - SHORTNESS OF BREATH Status: Acute Current Visit: Yes Problem List Initiated/Reviewed/Updated: Yes Orders Last 24hrs: Active Orders 24 hr Category Date Time Status Patient Status [ADT] Routine ADT 08/27/17 21:40 Ordered Antiembolic Devices [RC] PER UNIT ROUTINE Care 08/27/17 21:45 Ordered Bedrest Bathroom Privileges [RC] ASDIRECTED Care 08/27/17 21:40 Ordered Bedrest Bedside Commode [RC] ASDIRECTED Care 08/27/17 21:40 Ordered Cardiac Monitoring [RC] CONTINUOUS Care 08/27/17 21:43 Ordered Oxygen Therapy [RC] PRN Care 08/27/17 21:40 Ordered Up With Assistance [RC] ASDIRECTED Care 08/27/17 21:40 Ordered VTE/DVT Education [RC] PER UNIT ROUTINE Care 08/27/17 21:40 Ordered Vital Signs [RC] Q4H Care 08/27/17 21:40 Ordered Heart Healthy Diet [DIET] Diet 08/28/17 Breakfast Ordered MAGNESIUM [CHEM] Stat Lab 08/27/17 21:40 Ordered PHOSPHORUS [CHEM] Stat Lab 08/27/17 21:40 Ordered TROPONIN I [CHEM] Q6H Lab 08/27/17 23:40 Ordered TROPONIN I [CHEM] Q6H Lab 08/28/17 05:40 Ordered Acetaminophen [Tylenol] Med 08/27/17 21:40 Ordered 650 mg PO Q4H PRN Aspirin [Halfprin] Med 08/28/17 09:00 Ordered 81 mg PO DAILY Carbidopa/Levodopa [Sinemet 25-250 mg] Med 08/28/17 08:00 Ordered 1.5 tab PO 5XDAY Cyanocobalamin (Vitamin B-12) [B-12] Med 08/27/17 22:00 Ordered 1 injection INJECT .EVERY 30 DAYS Docusate Sodium [Colace] Med 08/27/17 21:54 Ordered 100 mg PO BID PRN Escitalopram [Lexapro] Med 08/28/17 09:00 Ordered 20 mg PO DAILY Heparin Sodium Med 08/27/17 21:45 Ordered 5,000 units SUBCUT Q12H Mirtazapine [Remeron] Med 08/28/17 21:00 Ordered 2 tab PO BEDTIME Omeprazole Med 08/28/17 09:00 Ordered 20 mg PO BID Polyethylene Glycol 3350 [MiraLAX] Med 08/28/17 09:00 Ordered 17 gm PO DAILY Simvastatin [Simvastatin] Med 08/28/17 21:00 Ordered 20 mg PO BEDTIME Sodium Chloride 0.9% [Normal Saline] 1,000 ml Med 08/27/17 21:45 Ordered IV ASDIRECTED busPIRone [Buspar] Med 08/28/17 09:00 Ordered 20 mg PO BID Antiembolic Hose [OM.PC] Per Unit Routine Oth 08/27/17 21:44 Ordered Resuscitation Status Routine Resus Stat 08/27/17 21:40 Ordered Medication Orders Acetaminophen (Tylenol) 650 mg PO Q4H PRN PRN Reason: Pain (Mild 1-3)/fever Aspirin (Halfprin) 81 mg PO DAILY MAX Carbidopa/Levodopa (Sinemet 25-250 Mg) 1.5 tab PO 5XDAY [facility] Heparin Sodium (Porcine) (Heparin Sodium) 5,000 units SUBCUT Q12H MAX Sodium Chloride (Normal Saline) 1,000 mls @ 75 mls/hr IV ASDIRECTED MAX Non-Formulary Medication (Buspirone [Buspar]) 20 mg PO BID MAX Non-Formulary Medication (Cyanocobalamin (Vitamin B-12) [B-12]) 1 injection INJECT .EVERY 30 DAYS [facility] Assessment/Plan Comment:: # Chest pain to rule out ACS -Initil trop was negative -No ischeemic changes on EKG -Monitor on Tele -Serial troponin -Serial EKG -ASA -Statin -NTg prn for chest pain #SOB likely due to anxiety -Continue supplemental oxygen and wean as tolerated -monitor respiratory status -Duo-nebs prn # Parkinson disease -Reconcile home meds #Anxiety -Continue home meds #HTN -BP at goal -continue home meds -monitor BP closely #HLD -on statin # s/p pace maker palcement -Due for interrogation on Tuesday # cacrdiac diet #Ful code
[2017-08-27] MEDS ORDERED: Cyanocobalamin (Vitamin B12) 1,000 MCG/ML SDV IM SCH (22:15)
[2017-08-27] MEDS: Heparin Sodium 5,000 Units/ML Vial SUBCUT SCH (22:28)
[2017-08-27] MEDS ORDERED: Simvastatin 10 MG Tab PO ONE (22:30)
[2017-08-27] MEDS ORDERED: Mirtazapine 15 MG Tab PO ONE (22:30)
[2017-08-27] MEDS ORDERED: Carbidopa/Levodopa 25-250 MG Tab PO ONE (22:30)
[2017-08-27] MEDS ORDERED: busPIRone 15 MG Tab PO ONE (22:30)
[2017-08-28 08:09] VITALS: BP 138/76
[2017-08-28] MEDS: Carbidopa/Levodopa 25-250 MG Tab PO SCH ×2 (08:55→11:18)
[2017-08-28] MEDS ORDERED: Polyethylene Glycol 3350 Powder 17 GM Packet PO SCH (09:00)
[2017-08-28] MEDS ORDERED: Escitalopram 10 MG Tab PO SCH (09:00)
[2017-08-28] MEDS ORDERED: Omeprazole 20 MG Cap.CR PO SCH (09:00)
[2017-08-28] MEDS ORDERED: busPIRone 15 MG Tab PO SCH (09:00)
[2017-08-28] MEDS ORDERED: Aspirin 81 MG Tab.EC PO SCH (09:00)
[2017-08-28] MEDS: Heparin Sodium 5,000 Units/ML Vial SUBCUT SCH (10:01)
--- NOTE | 2017-08-28 11:35 | PCM.DCSUM1 ---
Discharge Summary - Hospital Course Free Text/Narrative:: Patient is 87 y/o male with PMH of HTN, HLD, Anxiety,Parkinson, GERD/PUD, s/p pacemaker placement. He was brought in because of difficult breathing that started this last night accompanied by right sided chest pain. Patient was admitted for chest pain to r/o ACS for further evaluation. His stay has remained uncomplicated and symptoms has improved significantly. ACS is ruled out. He is being discharge home with instruction to follow up with PCP and to keep his pace maker interrogation tomorrow. - Discharge Data Discharge Date: 08/28/17 Discharge Disposition: Home, Self-Care 01 Condition: Good - Discharge Diagnosis/Problem(s) (1) Dyspnea SNOMED Code(s): 532729806 ICD Code: R06.00 - DYSPNEA, UNSPECIFIED Status: Acute Current Visit: Yes Qualifiers: Dyspnea type: orthopnea Qualified Code(s): R06.01 - Orthopnea (2) Anxiety SNOMED Code(s): 20621904 ICD Code: F41.9 - ANXIETY DISORDER, UNSPECIFIED Status: Acute Current Visit: Yes - Discharge Plan Home Medications: Home Meds Aspirin [Halfprin] 81 mg PO DAILY 08/20/16 [History] Carbidopa/Levodopa [Carbidopa-Levodopa 25-250] 20 - 250 tab PO 08/20/16 [ History] Cyanocobalamin (Vitamin B-12) [B-12] 1 injection INJECT .EVERY 30 DAYS 08/20/16 [History] Docusate Sodium [Colace] 100 mg PO BID PRN 08/20/16 [History] Escitalopram [Lexapro] 20 mg PO DAILY 08/20/16 [History] Mirtazapine 2 tab PO BEDTIME 08/20/16 [History] Omeprazole 20 mg PO BID 08/20/16 [History] Polyethylene Glycol 3350 [Miralax] 17 g PO DAILY 08/20/16 [History] Simvastatin 20 mg PO BEDTIME 08/20/16 [History] busPIRone [Buspar] 20 mg PO BID 08/20/16 [History] Forms: ED Department Discharge Referrals: Cleopatra Angela PA [Primary Care Provider] - - Discharge Summary/Plan Comment DC Time >30 min.: Yes Discharge Summary/Plan Comment: Patient to follow up with PCP and also to keep pace maker interrogation appointment tomorrow. - Patient Data Vitals - Most Recent: Last Vital Signs Temp 97.8 F 08/28/17 08:08 Pulse 71 08/28/17 08:08 Resp 20 08/28/17 08:08 BP 138/76 08/28/17 08:08 Pulse Ox 98 08/28/17 08:08 Weight - Most Recent: 165 lb I&O - Last 24 hours: Intake & Output 08/27/17 08/28/17 08/28/17 22:59 06:59 14:59 Intake Total 891 600 Output Total 935 600 Balance -44 0 Lab Results - Last 24 hrs: Laboratory Results - last 24 hr 08/27/17 08/27/17 08/28/17 Range/Units 23:35 23:35 06:30 Phosphorus 3.1 (2.5-4.6) mg/dL Magnesium 2.2 (1.8-2.5) mg/dL Troponin I < 0.02 < 0.02 (0.00-0.02) ng/ml Med Orders - Current: Current Medications Acetaminophen (Tylenol) 650 mg PO Q4H PRN PRN Reason: Pain (Mild 1-3)/fever Aspirin (Halfprin) 81 mg PO DAILY [facility] Last Admin: 08/28/17 08:55 Dose: 81 mg Buspirone HCl (Buspar) 20 mg PO BID [facility] Last Admin: 08/28/17 08:56 Dose: 20 mg Carbidopa/Levodopa (Sinemet 25-250 Mg) 1.5 tab PO 5XDAY [facility] Last Admin: 08/28/17 11:18 Dose: 1.5 tab Cyanocobalamin (Vitamin B12) 1,000 mcg IM ASDIRECTED [facility] Docusate Sodium (Colace) 100 mg PO BID PRN PRN Reason: Constipation Last Admin: 08/27/17 22:30 Dose: 100 mg Escitalopram Oxalate (Lexapro) 20 mg PO DAILY [facility] Last Admin: 08/28/17 08:55 Dose: 20 mg Heparin Sodium (Porcine) (Heparin Sodium) 5,000 units SUBCUT Q12H [facility] Last Admin: 08/28/17 10:01 Dose: 5,000 units Sodium Chloride (Normal Saline) 1,000 mls @ 75 mls/hr IV ASDIRECTED [facility] Last Admin: 08/27/17 22:38 Dose: 75 mls/hr Mirtazapine (Remeron) 30 mg PO BEDTIME MAX Omeprazole (Omeprazole) 20 mg PO BID MAX Last Admin: 08/28/17 08:56 Dose: 20 mg Polyethylene Glycol (Miralax) 17 gm PO DAILY MAX Last Admin: 08/28/17 08:57 Dose: 17 gm Simvastatin (Zocor) 20 mg PO BEDTIME MAX Discontinued Medications Buspirone HCl (Buspar) 20 mg PO ONETIME ONE Stop: 08/27/17 22:31 Last Admin: 08/27/17 22:35 Dose: 20 mg Carbidopa/Levodopa (Sinemet 25-250 Mg) 1.5 tab PO ONETIME ONE Stop: 08/27/17 22:31 Last Admin: 08/27/17 22:34 Dose: 1.5 tab Mirtazapine (Remeron) 30 mg PO ONETIME ONE Stop: 08/27/17 22:31 Last Admin: 08/27/17 22:36 Dose: 30 mg Simvastatin (Zocor) 20 mg PO ONETIME ONE Stop: 08/27/17 22:31 Last Admin: 08/27/17 22:31 Dose: 20 mg *Q Meaningful Use (DIS) - VTE *Q VTE Criteria *Q: - Stroke *Q Stroke Criteria *Q: - AMI *Q AMI Criteria *Q:
[2017-08-28] MEDS ORDERED: Simvastatin 10 MG Tab PO SCH (21:00)
[2017-08-28] MEDS ORDERED: Mirtazapine 15 MG Tab PO SCH (21:00)
--- NOTE | 2017-08-29 12:58 | EKG ---
08/27/2017 - BARTOLOME MG - FINDINGS: This 12-lead EKG shows a normal sinus rhythm with a ventricular rate of 78. Normal axis. First-degree AV block. No acute ST-segment or T-wave changes. [facility] /[id number]
== END 2017-08-28 12:00 | disposition home or self-care (01) ==
LOC: DL.ED 19:37 → DL.MS 21:03 → UNDOADMOB 21:03 → DL.MS 21:40
PROVIDERS: ADMIT Student in an Organized Health Care Education/Training Program; ATTEND Student in an Organized Health Care Education/Training Program
DX: F41.9 Anxiety disorder, unspecified (principal); I10 Essential (primary) hypertension; E78.5 Hyperlipidemia, unspecified; G20 Parkinson's disease; K21.9 Gastro-esophageal reflux disease without esophagitis; M19.90 Unspecified osteoarthritis, unspecified site; Z88.8 Allergy status to other drugs, medicaments and biological substances; Z95.0 Presence of cardiac pacemaker; Z79.82 Long term (current) use of aspirin; Z79.899 Other long term (current) drug therapy; Z98.890 Other specified postprocedural states
CPT/HCPCS: 36415; 71045; 80053; 82553; 83605; 83735; 83880; 84100; 84484; 85025; 85610; 87040; 93005; 93010; 99285; A9270; J1644; J7030; 96360; 96361; 96372; G0378

== ENCOUNTER 2017-09-08 14:03 | Emergency (ER) | payer MEDICARE, BC ==
[2017-09-08 14:15] VITALS: BP 101/87
[2017-09-08 15:17] LABS: CHLORIDE,CL 104 mmol/L (101-111); SODIUM,NA 139 mmol/L (135-145)
--- NOTE | 2017-09-08 15:24 | CR ---
Clinical history: 87-year-old male chest pain. 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 No cephalization of vascular flow, new signs of alveolar edema or dependent pleural fluid accumulatio n when compared previous AP exam 27 August 2017. No new lung mass, hilar lymphadenopathy or focal lobar pneumonia. No atelectasis/collapse. No pneumothorax. 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 CONCLUSION: No acute new cardiopulmonary abnormality.
--- NOTE | 2017-09-08 15:34 | EDM.PDOC ---
ED HPI GENERAL MEDICAL PROBLEM - General Chief Complaint: Respiratory Problem Stated Complaint: TROUBLE BREATHING Time Seen by Provider: 09/08/17 14:16 Source of Information: Reports: Patient, RN, RN Notes Reviewed History Limitations: Reports: No Limitations - History of Present Illness INITIAL COMMENTS - FREE TEXT/NARRATIVE: Patient is breathing heavy for a couple of days. Coughing up phlegm that is yellow. He has no chest pain, fever, chills, nausea,vomiting or diarrhea. Duration: Getting Worse Location: Reports: Chest Quality: Reports: Ache Severity: Moderate Improves with: Reports: None Worsens with: Reports: None Associated Symptoms: Reports: No Other Symptoms - Related Data Allergies Allergy/AdvReac Type Severity Reaction Status Date / Time alprazolam Allergy Other Verified 08/27/17 23:31 tamsulosin [From Flomax] AdvReac Dizziness Verified 08/27/17 23:31 Home Meds: Home Meds Aspirin [Halfprin] 81 mg PO DAILY 08/20/16 [History] Carbidopa/Levodopa [Carbidopa-Levodopa 25-250] 20 - 250 tab PO 08/20/16 [ History] Cyanocobalamin (Vitamin B-12) [B-12] 1 injection INJECT .EVERY 30 DAYS 08/20/16 [History] Docusate Sodium [Colace] 100 mg PO BID PRN 08/20/16 [History] Escitalopram [Lexapro] 20 mg PO DAILY 08/20/16 [History] Mirtazapine 2 tab PO BEDTIME 08/20/16 [History] Omeprazole 20 mg PO BID 08/20/16 [History] Polyethylene Glycol 3350 [Miralax] 17 g PO DAILY 08/20/16 [History] Simvastatin 20 mg PO BEDTIME 08/20/16 [History] busPIRone [Buspar] 20 mg PO BID 08/20/16 [History] Past Medical History HEENT History: Reports: Other (See Below) Other HEENT History: 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 Cardiovascular History: Reports: High Cholesterol, Hypertension, Pacemaker Respiratory History: Reports: None Gastrointestinal History: Reports: GERD, PUD, Other (See Below) Other Gastrointestinal History: HX OF HAIR ESOPHAGUS Genitourinary History: Reports: None Musculoskeletal History: Reports: Arthritis, Other (See Below) Other Musculoskeletal History: DEGENERATIVE JOINT DISEASE Neurological History: Reports: Head Trauma, Parkinson's Psychiatric History: Reports: Anxiety Endocrine/Metabolic History: Reports: None Hematologic History: Reports: Anemia Immunologic History: Reports: None Oncologic (Cancer) History: Reports: None Dermatologic History: Reports: None - Infectious Disease History Infectious Disease History: Reports: Chicken Pox, Measles, Mumps - Past Surgical History Cardiovascular Surgical History: Reports: Pacer Male Surgical History: Reports: TURP-Transurethral Resection of Prostate Social & Family History - Family History Family Medical History: Noncontributory - Tobacco Use Smoking Status *Q: Never Smoker Used Tobacco, but Quit: No Second Hand Smoke Exposure: No - Caffeine Use Caffeine Use: Reports: Coffee - Recreational Drug Use Recreational Drug Use: No - Living Situation & Occupation Living situation: Reports: , with Spouse Occupation: Retired ED ROS GENERAL - Review of Systems Review Of Systems: ROS reveals no pertinent complaints other than HPI. ED EXAM, GENERAL - Physical Exam Exam: See Below Exam Limited By: No Limitations General Appearance: Alert, WD/WN, No Apparent Distress Eye Exam: Bilateral Eye: Normal Inspection Ears: Normal External Exam, Normal Canal, Hearing Grossly Normal, Normal TMs Nose: Normal Inspection, Normal Mucosa, No Blood Throat/Mouth: Other (very soft spoken) Head: Atraumatic, Normocephalic Neck: Normal Inspection, Supple, Non-Tender, Full Range of Motion Respiratory/Chest: Other (diminished lung sounds but clear. ) Cardiovascular: Normal Peripheral Pulses, Regular Rate, Rhythm, No Edema, No Gallop, No JVD, No Murmur, No Rub GI/Abdominal: Normal Bowel Sounds, Soft, Non-Tender, No Organomegaly, No Distention, No Abnormal Bruit, No Mass (Male) Exam: Deferred Rectal (Males) Exam: Deferred Back Exam: Normal Inspection, Full Range of Motion, NT Extremities: Normal Inspection, Normal Range of Motion, Non-Tender, Normal Capillary Refill, No Pedal Edema Neurological: Other (Parkinsons) Psychiatric: Normal Affect, Normal Mood Skin Exam: Warm, Dry, Intact, Normal Color, No Rash Lymphatic: No Adenopathy EKG INTERPRETATION EKG Date: 09/08/17 Time: 14:22 Rhythm: Other (sinus rhythm) Rate (Beats/Min): 74 [place]: Normal P-Wave: Present QRS: Normal ST-T: Normal QT: Normal EKG Interpretation Comments: First degree AV block. Course - Vital Signs Last Recorded V/S: Last Vital Signs Temp 97.6 F 09/08/17 14:13 Pulse 77 09/08/17 14:13 Resp 18 09/08/17 14:13 BP 101/87 09/08/17 14:13 Pulse Ox 95 09/08/17 14:13 - Orders/Labs/Meds Orders: Active Orders 24 hr Category Date Time Status EKG Documentation Completion [RC] STAT Care 09/08/17 14:34 Active UA W/MICROSCOPIC [URIN] Stat Lab 09/08/17 15:11 Received Labs: Laboratory Tests 09/08/17 09/08/17 Range/Units 14:47 14:47 WBC 4.8 L (5.0-10.0) 10^3/uL RBC 3.85 L (4.6-6.2) 10^6/uL Hgb 11.8 L (14.0-18.0) g/dL Hct 35.6 L (40.0-54.0) % MCV 92.5 (80-100) fL MCH 30.6 (27.0-34.0) pg MCHC 33.1 (33.0-35.0) g/dL Plt Count 157 (150-450) 10^3/uL Neut % (Auto) 55.5 (42.2-75.2) % Lymph % (Auto) 29.6 (20.5-50.1) % [place] % (Auto) 11.1 H (2-8) % Eos % (Auto) 3.4 H (1.0-3.0) % Baso % (Auto) 0.4 (0.0-1.0) % Sodium 139 (135-145) mmol/L Potassium 4.3 (3.6-5.0) mmol/L Chloride 104 (101-111) mmol/L Carbon Dioxide 28.0 (21.0-31.0) mmol/L Anion Gap 11.3 BUN 22 H (7-18) mg/dL Creatinine 1.2 (0.6-1.3) mg/dL Est Cr Clr Drug Dosing 47.64 mL/min Estimated GFR (MDRD) 58 BUN/Creatinine Ratio 18.33 Glucose 108 H (74-105) mg/dL Calcium 8.9 (8.4-10.2) mg/dl Total Bilirubin 0.7 (0.2-1.0) mg/dL AST 21 (10-42) IU/L ALT 7 L (10-60) IU/L Alkaline Phosphatase 51 (42-121) IU/L Troponin I < 0.02 (0.00-0.02) ng/ml Total Protein 6.1 L (6.7-8.2) g/dl Albumin 3.9 (3.2-5.5) g/dl Globulin 2.2 Albumin/Globulin Ratio 1.77 - Radiology Interpretation Free Text/Narrative:: Chest x-ray: No acute new cardiopulmonary abnormality. See Rad report. Departure - Departure Time of Disposition: 15:32 Disposition: Home, Self-Care 01 Clinical Impression: Upper respiratory infection Qualifiers: URI type: unspecified viral URI Qualified Code(s): J06.9 - Acute upper respiratory infection, unspecified; B97.89 - Other viral agents as the cause of diseases classified elsewhere; B97.89 - Other viral agents as the cause of diseases classified elsewhere - Discharge Information Instructions: Upper Respiratory Infection, Adult, [id number] Forms: ED Department Discharge Additional Instructions: May use an over the counter Mucinex or generic like as directed Follow up with your primary care facility - My Orders Last 24 Hours: My Active Orders 09/08/17 14:34 EKG Documentation Completion [RC] STAT 09/08/17 15:11 UA W/MICROSCOPIC [URIN] Stat - Assessment/Plan Last 24 Hours: My Active Orders 09/08/17 14:34 EKG Documentation Completion [RC] STAT 09/08/17 15:11 UA W/MICROSCOPIC [URIN] Stat
--- NOTE | 2017-09-13 13:55 | EKG ---
09/08/2017- BARTOLOME MG - FINDINGS: EKG, per my reading, shows sinus rhythm at the rate of 74 with WA interval of 284. MOD /[id number]
== END 2017-09-08 15:59 | disposition home or self-care (01) ==
LOC: DL.ED 14:03
DX: J06.9 Acute upper respiratory infection, unspecified (principal); I10 Essential (primary) hypertension; E78.00 Pure hypercholesterolemia, unspecified; K21.9 Gastro-esophageal reflux disease without esophagitis; F41.9 Anxiety disorder, unspecified; Z95.0 Presence of cardiac pacemaker; Z79.82 Long term (current) use of aspirin; Z79.899 Other long term (current) drug therapy; Z88.8 Allergy status to other drugs, medicaments and biological substances
CPT/HCPCS: 36415; 71045; 80053; 81001; 84484; 85025; 93005; 93010; 99283

== ENCOUNTER 2018-01-06 18:27 | Emergency (ER) | payer MEDICARE, BC ==
--- NOTE | 2018-01-06 18:51 | EDM.PDOC ---
ED HPI GENERAL MEDICAL PROBLEM - General Chief Complaint: Respiratory Problem Stated Complaint: hard time breathing [id number] Time Seen by Provider: 01/06/18 18:48 Source of Information: Reports: Patient, Family History Limitations: Reports: No Limitations - History of Present Illness INITIAL COMMENTS - FREE TEXT/NARRATIVE: c/o progressive worsening SOB past few days, been chilly, no CP. appetite fair. - Related Data Allergies Allergy/AdvReac Type Severity Reaction Status Date / Time alprazolam Allergy Other Verified 08/27/17 23:31 tamsulosin [From Flomax] AdvReac Dizziness Verified 08/27/17 23:31 Home Meds: Home Meds Aspirin [Halfprin] 81 mg PO DAILY 08/20/16 [History] Carbidopa/Levodopa [Carbidopa-Levodopa 25-250] 1.5 tab PO 08/20/16 [ History] Cyanocobalamin (Vitamin B-12) [B-12] 1 injection INJECT .EVERY 30 DAYS 08/20/16 [History] Docusate Sodium [Colace] 100 mg PO BID PRN 08/20/16 [History] Escitalopram [Lexapro] 20 mg PO DAILY 08/20/16 [History] Mirtazapine 2 tab PO BEDTIME 08/20/16 [History] Omeprazole 20 mg PO BID 08/20/16 [History] Polyethylene Glycol 3350 [Miralax] 17 g PO DAILY 08/20/16 [History] Simvastatin 20 mg PO BEDTIME 08/20/16 [History] busPIRone [Buspar] 20 mg PO BID 08/20/16 [History] Midodrine 10 mg PO BID 01/06/18 [History] Past Medical History HEENT History: Reports: Other (See Below) Other HEENT History: 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 Cardiovascular History: Reports: High Cholesterol, Hypertension, Pacemaker Respiratory History: Reports: None Gastrointestinal History: Reports: GERD, PUD, Other (See Below) Other Gastrointestinal History: HX OF HAIR ESOPHAGUS Genitourinary History: Reports: None Musculoskeletal History: Reports: Arthritis, Other (See Below) Other Musculoskeletal History: DEGENERATIVE JOINT DISEASE Neurological History: Reports: Head Trauma, Parkinson's Psychiatric History: Reports: Anxiety Endocrine/Metabolic History: Reports: None Hematologic History: Reports: Anemia Immunologic History: Reports: None Oncologic (Cancer) History: Reports: None Dermatologic History: Reports: None - Infectious Disease History Infectious Disease History: Reports: Chicken Pox, Measles, Mumps - Past Surgical History Cardiovascular Surgical History: Reports: Pacer Male Surgical History: Reports: TURP-Transurethral Resection of Prostate Social & Family History - Family History Family Medical History: Noncontributory - Caffeine Use Caffeine Use: Reports: Coffee - Living Situation & Occupation Living situation: Reports: , with Spouse Occupation: Retired ED ROS GENERAL - Review of Systems Review Of Systems: ROS reveals no pertinent complaints other than HPI. ED EXAM, GENERAL - Physical Exam Exam: See Below Exam Limited By: No Limitations General Appearance: Alert, WD/WN, Mild Distress, Other (general discomfort) Ears: Hearing Grossly Normal Throat/Mouth: Normal Voice, No Airway Compromise Head: Atraumatic Neck: Non-Tender, Full Range of Motion Respiratory/Chest: No Respiratory Distress, Decreased Breath Sounds, Rhonchi Cardiovascular: Regular Rate, Rhythm GI/Abdominal: Soft, Non-Tender Neurological: Alert, Normal Cognition, No Motor/Sensory Deficits Psychiatric: Flat Affect Skin Exam: Warm, Dry, Normal Color Lymphatic: No Adenopathy Course - Vital Signs Last Recorded V/S: Last Vital Signs Temp 36.7 C 01/06/18 18:38 Pulse 62 01/06/18 18:38 Resp 25 H 01/06/18 18:38 BP 161/78 H 01/06/18 18:38 Pulse Ox 98 01/06/18 18:38 - Orders/Labs/Meds Labs: Laboratory Tests 01/06/18 01/06/18 01/06/18 Range/Units 18:55 18:55 18:55 WBC 5.8 (5.0-10.0) 10^3/uL RBC 4.02 L (4.6-6.2) 10^6/uL Hgb 12.2 L (14.0-18.0) g/dL Hct 37.0 L (40.0-54.0) % MCV 92.0 (80-100) fL MCH 30.3 (27.0-34.0) pg MCHC 33.0 (33.0-35.0) g/dL Plt Count 163 (150-450) 10^3/uL Neut % (Auto) 53.2 (42.2-75.2) % Lymph % (Auto) 28.1 (20.5-50.1) % [place] % (Auto) 14.8 H (2-8) % Eos % (Auto) 3.6 H (1.0-3.0) % Baso % (Auto) 0.3 (0.0-1.0) % Sodium 139 (135-145) mmol/L Potassium 4.0 (3.6-5.0) mmol/L Chloride 105 (101-111) mmol/L Carbon Dioxide 31.0 (21.0-31.0) mmol/L Anion Gap 7.0 BUN 26 H (7-18) mg/dL Creatinine 1.0 (0.6-1.3) mg/dL Est Cr Clr Drug Dosing 61.33 mL/min Estimated GFR (MDRD) > 60 BUN/Creatinine Ratio 26.00 Glucose 94 (74-105) mg/dL Lactic Acid 1.1 (0.5-2.2) mmol/L Calcium 8.8 (8.4-10.2) mg/dl Total Bilirubin 0.4 (0.2-1.0) mg/dL AST 19 (10-42) IU/L ALT 7 L (10-60) IU/L Alkaline Phosphatase 66 (42-121) IU/L Troponin I < 0.02 (0.00-0.02) ng/ml B-Natriuretic Peptide 108 H (0-100) pg/ml Total Protein 6.7 (6.7-8.2) g/dl Albumin 4.0 (3.2-5.5) g/dl Globulin 2.7 Albumin/Globulin Ratio 1.48 Meds: Medications Discontinued Medications Generic Name Dose Route Start Last Admin Trade Name Loydq PRN Reason Stop Dose Admin Albuterol/Ipratropium 3 ml 01/06/18 19:37 01/06/18 20:00 Duoneb 3.0-0.5 Mg/3 Ml NEB 01/06/18 19:38 3 ml ONETIME ONE Administration Azithromycin 500 mg 01/06/18 19:47 01/06/18 19:58 Zithromax PO 01/06/18 19:48 500 mg ONETIME ONE Administration - Re-Assessments/Exams Free Text/Narrative Re-Assessment/Exam: 01/06/18 19:48 results discussed with pt & family. pt feeling better presently. Departure - Departure Time of Disposition: 20:15 Disposition: Home, Self-Care 01 Condition: Good Clinical Impression: Bronchitis - Discharge Information Instructions: Acute Bronchitis, Adult, [id number] Forms: ED Department Discharge Additional Instructions: 1) rest 2) don't sleep flat at night 3) recheck if there is any change or concern rx given; z-amparo
[2018-01-06 18:52] VITALS: BP 161/78
[2018-01-06 19:24] LABS: CHLORIDE,CL 105 mmol/L (101-111); SODIUM,NA 139 mmol/L (135-145)
[2018-01-06] MEDS ORDERED: Albuterol/Ipratropium 3.0-0.5 MG/3 ML Neb Soln NEB ONE (19:37)
[2018-01-06] MEDS ORDERED: Azithromycin 250 MG Tab PO ONE (19:47)
--- NOTE | 2018-01-10 08:38 | EKG ---
01/06/2018- BARTOLOME MG - FINDINGS: EKG per my reading, shows atrial paced rhythm. [facility] /[id number]
== END 2018-01-06 20:18 | disposition home or self-care (01) ==
LOC: DL.ED 18:27
DX: J40 Bronchitis, not specified as acute or chronic (principal); E78.00 Pure hypercholesterolemia, unspecified; I10 Essential (primary) hypertension; Z88.8 Allergy status to other drugs, medicaments and biological substances; Z79.82 Long term (current) use of aspirin; Z79.899 Other long term (current) drug therapy
CPT/HCPCS: 36415; 71045; 80053; 83605; 83880; 84484; 85025; 87040; 93005; 93010; 99283; A9270

== ENCOUNTER 2018-02-14 19:14 | Emergency (ER) | payer MEDICARE, BC ==
[2018-02-14 19:31] VITALS: BP 134/83
[2018-02-14] MEDS ORDERED: Lidocaine 1% 30 ML SDV INJECT ONE (20:28)
[2018-02-14] MEDS ORDERED: Bacitracin Oint 1 GM U/D Packet ONE (21:05)
[2018-02-14] MEDS ORDERED: Bacitracin Oint 1 GM U/D Packet TOP ONE (21:05)
--- NOTE | 2018-02-14 21:09 | EDM.PDOC ---
ED HPI GENERAL MEDICAL PROBLEM - General Chief Complaint: Laceration Stated Complaint: [id number] TOOK CHUNK OUT OF ARM Time Seen by Provider: 02/14/18 19:38 Source of Information: Reports: Patient, Family History Limitations: Reports: No Limitations - History of Present Illness INITIAL COMMENTS - FREE TEXT/NARRATIVE: ED with family, hx of parkinson's disease. stumbled against wall in garage and fell against left elbow. Denies other injury, did not strike head. Able to move elbow without pain. 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) Left Elbow Pain Score (Numeric/FACES): 2 - Related Data Allergies Allergy/AdvReac Type Severity Reaction Status Date / Time alprazolam Allergy Other Verified 08/27/17 23:31 tamsulosin [From Flomax] AdvReac Dizziness Verified 08/27/17 23:31 Home Meds: Home Meds Aspirin [Halfprin] 81 mg PO DAILY 08/20/16 [History] Carbidopa/Levodopa [Carbidopa-Levodopa 25-250] 1.5 tab PO 08/20/16 [ History] Cyanocobalamin (Vitamin B-12) [B-12] 1 injection INJECT .EVERY 30 DAYS 08/20/16 [History] Docusate Sodium [Colace] 100 mg PO BID PRN 08/20/16 [History] Escitalopram [Lexapro] 20 mg PO DAILY 08/20/16 [History] Mirtazapine 2 tab PO BEDTIME 08/20/16 [History] Omeprazole 20 mg PO BID 08/20/16 [History] Polyethylene Glycol 3350 [Miralax] 17 g PO DAILY 08/20/16 [History] Simvastatin 20 mg PO BEDTIME 08/20/16 [History] busPIRone [Buspar] 20 mg PO BID 08/20/16 [History] Midodrine 10 mg PO BID 01/06/18 [History] Past Medical History HEENT History: Reports: Other (See Below) Other HEENT History: 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 Cardiovascular History: Reports: High Cholesterol, Hypertension, Pacemaker Respiratory History: Reports: None Gastrointestinal History: Reports: GERD, PUD, Other (See Below) Other Gastrointestinal History: HX OF HAIR ESOPHAGUS Genitourinary History: Reports: None Musculoskeletal History: Reports: Arthritis, Other (See Below) Other Musculoskeletal History: DEGENERATIVE JOINT DISEASE Neurological History: Reports: Head Trauma, Parkinson's Psychiatric History: Reports: Anxiety Endocrine/Metabolic History: Reports: None Hematologic History: Reports: Anemia Immunologic History: Reports: None Oncologic (Cancer) History: Reports: None Dermatologic History: Reports: None - Infectious Disease History Infectious Disease History: Reports: Chicken Pox, Measles, Mumps - Past Surgical History Cardiovascular Surgical History: Reports: Pacer Male Surgical History: Reports: TURP-Transurethral Resection of Prostate Social & Family History - Family History Family Medical History: Noncontributory - Tobacco Use Smoking Status *Q: Unknown Ever Smoked Second Hand Smoke Exposure: No - Caffeine Use Caffeine Use: Reports: Coffee - Recreational Drug Use Recreational Drug Use: No - Living Situation & Occupation Living situation: Reports: , with Spouse Occupation: Retired ED ROS GENERAL - Review of Systems Review Of Systems: ROS reveals no pertinent complaints other than HPI. ED EXAM, SKIN/RASH Exam: See Below Exam Limited By: No Limitations General Appearance: Alert, No Apparent Distress Eye Exam: Bilateral Eye: EOMI Ears: Hearing Loss Nose: Normal Inspection Throat/Mouth: Normal Inspection Head: Atraumatic, Normocephalic Neck: Normal Inspection, Non-Tender, Full Range of Motion Respiratory/Chest: No Respiratory Distress, Lungs Clear, Normal Breath Sounds Cardiovascular: Normal Peripheral Pulses GI/Abdominal: Soft Extremities: Normal Range of Motion Neurological: Alert, Oriented, Slow to Respond. No: Disoriented Psychiatric: Normal Affect Skin: Warm, Dry, Wound/Incision (left elbow laceration) Location, Skin: Upper Extremity, Left Associated features: No: Swelling ED SKIN PROCEDURES - Laceration/Wound Repair Left Elbow Lac/Wound length In cm: 3 Appearance: Superficial, Stellate Distal NVT: Neuro & Vascular Intact Anesthetic Type: Local Local Anesthesia - Lidocaine (Xylocaine): 1% Plain Local Anesthetic Volume: 2cc Skin Prep: Chlorhexidine (Hibiciens), Saline Exploration/Debridement/Repair: Wound Explored Closed with: Sutures Suture Size: 4-0 # of Sutures: 5 Sterile Dressing Applied: Nurse Tetanus Status Addressed: Yes Complications: No Course - Vital Signs Last Recorded V/S: Last Vital Signs Temp 98.1 F 02/14/18 19:29 Pulse 64 02/14/18 19:29 Resp 18 02/14/18 19:29 BP 134/83 02/14/18 19:29 Pulse Ox 99 02/14/18 19:29 - Orders/Labs/Meds Meds: Medications Discontinued Medications Generic Name Dose Route Start Last Admin Trade Name Omar PRN Reason Stop Dose Admin Bacitracin 1 dose 02/14/18 21:05 02/14/18 21:07 Bacitracin Oint 1 Gm TOP 02/14/18 21:06 1 dose ONETIME ONE Administration Bacitracin Confirm 02/14/18 21:05 02/14/18 21:10 Bacitracin Oint 1 Gm Administered 02/14/18 21:06 Not Given Dose 1 dose .ROUTE .STK-MED ONE Lidocaine HCl 30 ml 02/14/18 20:28 02/14/18 20:35 Xylocaine-Mpf 1% INJECT 02/14/18 20:29 30 ml ONETIME ONE Administration Departure - Departure Time of Disposition: 21:06 Disposition: Home, Self-Care 01 Condition: Good Clinical Impression: Fall in home Qualifiers: Encounter type: initial encounter Qualified Code(s): W19.XXXA - Unspecified fall, initial encounter Laceration of left elbow without complication Qualifiers: Encounter type: initial encounter Qualified Code(s): S51.012A - Laceration without foreign body of left elbow, initial encounter - Discharge Information Instructions: Laceration Care, Adult, [id number] Referrals: PCP,None [Primary Care Provider] - Forms: ED Department Discharge Additional Instructions: cool pack to elbow toinight keep area covered, change dressing twice daily, wash with soap and water sutures out 10 days recheck sooner if swelling redness or drainage.
== END 2018-02-14 21:15 | disposition home or self-care (01) ==
LOC: DL.ED 19:14
DX: S51.012A Laceration without foreign body of left elbow, initial encounter (principal); I10 Essential (primary) hypertension; Z88.8 Allergy status to other drugs, medicaments and biological substances; Z79.82 Long term (current) use of aspirin; Z79.899 Other long term (current) drug therapy; W19.XXXA Unspecified fall, initial encounter
CPT/HCPCS: 12002; 99282; 99283

== ENCOUNTER 2018-08-31 13:05 | Observation (INO) | payer MEDICARE, BC ==
[2018-08-31] MEDS ORDERED: Sodium Chloride 0.9% 10 ML Syringe FLUSH PRN (13:22)
--- NOTE | 2018-08-31 13:22 | EDM.PDOC ---
ED HPI GENERAL MEDICAL PROBLEM - General Chief Complaint: General Stated Complaint: FELL & HIGH BP Time Seen by Provider: 08/31/18 13:22 Source of Information: Reports: Patient, Family (), Old Records, RN, RN Notes Reviewed History Limitations: Reports: No Limitations - History of Present Illness INITIAL COMMENTS - FREE TEXT/NARRATIVE: This 88yr old male with history of advanced Parkinson Disease arrives from assisted living apartment by ambulance with request by assisted living facility nurse to "have the patient checked out" due to chronic frequent falls and low blood pressure. Pt and his state that the pt has had frequent falls for at least the last 2 years. Pt does not know what his baseline BP range is. Pt reports that recently, as in the last several days, that he have dizziness and weakness when he stands to walk. Pt admits to chronic fatigue, chronic weakness , chronic dry mouth, and unsteady gait. Pt denies any new symptoms, but states that he chronic symptoms have slowly worsened over the past year. Duration: Chronic Location: Reports: Generalized Quality: Reports: Other (Denies pain) Improves with: Reports: None Worsens with: Reports: None Associated Symptoms: Reports: No Other Symptoms - Related Data Allergies Allergy/AdvReac Type Severity Reaction Status Date / Time alprazolam Allergy Other Verified 08/27/17 23:31 tamsulosin [From Flomax] AdvReac Dizziness Verified 08/27/17 23:31 Home Meds: Home Meds Aspirin [Halfprin] 81 mg PO DAILY 08/20/16 [History] Carbidopa/Levodopa [Carbidopa-Levodopa 25-250] 1.5 tab PO 08/20/16 [ History] Cyanocobalamin (Vitamin B-12) [B-12] 1 injection INJECT .EVERY 30 DAYS 08/20/16 [History] Docusate Sodium [Colace] 100 mg PO BID PRN 08/20/16 [History] Escitalopram [Lexapro] 20 mg PO DAILY 08/20/16 [History] Mirtazapine 2 tab PO BEDTIME 08/20/16 [History] Omeprazole 20 mg PO BID 08/20/16 [History] Polyethylene Glycol 3350 [Miralax] 17 g PO DAILY 08/20/16 [History] Simvastatin 20 mg PO BEDTIME 08/20/16 [History] busPIRone [Buspar] 20 mg PO BID 08/20/16 [History] Midodrine 10 mg PO BID 01/06/18 [History] Past Medical History HEENT History: Reports: Other (See Below) Other HEENT History: 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 Cardiovascular History: Reports: High Cholesterol, Hypertension, Pacemaker Respiratory History: Reports: None Gastrointestinal History: Reports: GERD, PUD, Other (See Below) Other Gastrointestinal History: HX OF HAIR ESOPHAGUS Genitourinary History: Reports: None Musculoskeletal History: Reports: Arthritis, Other (See Below) Other Musculoskeletal History: DEGENERATIVE JOINT DISEASE Neurological History: Reports: Head Trauma, Parkinson's Psychiatric History: Reports: Anxiety Endocrine/Metabolic History: Reports: None Hematologic History: Reports: Anemia Immunologic History: Reports: None Oncologic (Cancer) History: Reports: None Dermatologic History: Reports: None - Infectious Disease History Infectious Disease History: Reports: Chicken Pox, Measles, Mumps - Past Surgical History Cardiovascular Surgical History: Reports: Pacer Male Surgical History: Reports: TURP-Transurethral Resection of Prostate Social & Family History - Family History Family Medical History: Noncontributory - Tobacco Use Smoking Status *Q: Never Smoker - Caffeine Use Caffeine Use: Reports: Coffee - Alcohol Use Alcohol Use History: No - Living Situation & Occupation Living situation: Reports: , with Spouse, Assisted Living Occupation: Retired ED ROS GENERAL - Review of Systems Review Of Systems: ROS reveals no pertinent complaints other than HPI. ED EXAM, GENERAL - Physical Exam Exam: See Below Exam Limited By: Physical Impairment General Appearance: Alert, No Apparent Distress, Thin, Other (Frail, elderly appearing male.) Eye Exam: Bilateral Eye: Normal Inspection Ears: Normal External Exam Nose: Normal Inspection, Normal Mucosa, No Blood Throat/Mouth: Normal Lips, Normal Oropharynx, No Airway Compromise, Other (Weak , faint voice. Dry oral membranes.) Head: Atraumatic, Normocephalic Neck: Normal Inspection, Supple, Non-Tender, Full Range of Motion Respiratory/Chest: No Respiratory Distress, Lungs Clear, Normal Breath Sounds, No Accessory Muscle Use, Chest Non-Tender, Decreased Breath Sounds, Other ( pacer at left upper lateral chest wall) Cardiovascular: Regular Rate, Rhythm, No Edema, No JVD GI/Abdominal: Normal Bowel Sounds, Soft, Non-Tender, No Distention (Male) Exam: Deferred Rectal (Males) Exam: Deferred Back Exam: Normal Inspection, Full Range of Motion. No: Vertebral Tenderness Extremities: Normal Range of Motion, Non-Tender, No Pedal Edema, Normal Capillary Refill, Other (Minor subacute appearing bruises to B/L anterior knees) . No: Joint Swelling Neurological: Alert, Oriented (to person and place), Normal Cognition, Other ( no visible tremor at this time, no focal deficits, generalized motor weakness, moves slow in general.) Psychiatric: Normal Affect, Normal Mood Skin Exam: Warm, Dry, Intact, Other (minor, very superficial abrasion to left anterior shoulder) Course - Vital Signs Last Recorded V/S: Last Vital Signs Temp 36.4 C 08/31/18 13:25 Pulse 70 08/31/18 13:25 Resp 16 08/31/18 13:25 BP 119/67 08/31/18 13:25 Pulse Ox 97 08/31/18 13:25 Orthostatic Blood Pressure [ 88/55 Standing] Orthostatic Blood Pressure [ 114/62 Sitting] Orthostatic Blood Pressure [ 128/68 Supine] Pt reports significant lightheadedness and dizziness. - Orders/Labs/Meds Orders: Active Orders 24 hr Category Date Time Status Orthostatic Vital Signs [RC] ASDIRECTED Care 08/31/18 13:49 Active Peripheral IV Care [RC] . DIRECTED Care 08/31/18 13:23 Active Chest 1V Frontal [CR] Stat Exams 08/31/18 13:23 Ordered Sodium Chloride 0.9% [Saline Flush] Med 08/31/18 13:22 Active 10 ml FLUSH ASDIRECTED PRN Peripheral IV Insertion Adult [OM.PC] Stat Oth 08/31/18 13:22 Ordered Medication Orders Sodium Chloride (Saline Flush) 10 ml FLUSH ASDIRECTED PRN PRN Reason: Keep Vein Open Labs: Laboratory Tests 08/31/18 08/31/18 08/31/18 Range/Units 13:29 13:29 15:03 WBC 6.8 (5.0-10.0) 10^3/uL RBC 3.82 L (4.6-6.2) 10^6/uL Hgb 11.6 L (14.0-18.0) g/dL Hct 35.1 L (40.0-54.0) % MCV 91.9 (80-100) fL MCH 30.4 (27.0-34.0) pg MCHC 33.0 (33.0-35.0) g/dL Plt Count 180 (150-450) 10^3/uL Neut % (Auto) 65.2 (42.2-75.2) % Lymph % (Auto) 19.8 L (20.5-50.1) % [place] % (Auto) 12.9 H (2-8) % Eos % (Auto) 1.8 (1.0-3.0) % Baso % (Auto) 0.3 (0.0-1.0) % Sodium 137 (135-145) mmol/L Potassium 4.2 (3.6-5.0) mmol/L Chloride 102 (101-111) mmol/L Carbon Dioxide 27.0 (21.0-31.0) mmol/L Anion Gap 12.2 BUN 29 H (7-18) mg/dL Creatinine 1.3 (0.6-1.3) mg/dL Est Cr Clr Drug Dosing 47.10 mL/min Estimated GFR (MDRD) 52 BUN/Creatinine Ratio 22.30 Glucose 135 H (74-105) mg/dL Calcium 8.7 (8.4-10.2) mg/dl Total Bilirubin 0.6 (0.2-1.0) mg/dL AST 25 (10-42) IU/L ALT 7 L (10-60) IU/L Alkaline Phosphatase 160 H (42-121) IU/L Total Protein 6.4 L (6.7-8.2) g/dl Albumin 3.8 (3.2-5.5) g/dl Globulin 2.6 Albumin/Globulin Ratio 1.46 Urine Color Yellow (YELLOW) Urine Appearance Slightly cloudy (CLEAR) Urine pH 7.0 (5.0-9.0) Ur Specific [place] 1.020 (1.005-1.030) Urine Protein Trace H (NEGATIVE) Urine Glucose (UA) Negative (NEGATIVE) Urine Ketones Trace H (NEGATIVE) Urine Occult Blood Negative (NEGATIVE) Urine Nitrite Negative (NEGATIVE) Urine Bilirubin Negative (NEGATIVE) Urine Urobilinogen 2.0 H (0.2-1.0) mg/dL Ur Leukocyte Esterase Negative (NEGATIVE) Urine RBC 0-5 /HPF Urine WBC 0-5 (0-5/HPF) /HPF Ur Epithelial Cells Rare /HPF Urine Bacteria Rare (0-FEW/HPF) /HPF Hyaline Casts Few H /LPF Urine Mucus Moderate H /LPF Meds: Medications Generic Name Dose Route Start Last Admin Trade Name Freq PRN Reason Stop Dose Admin Sodium Chloride 10 ml 08/31/18 13:22 Saline Flush FLUSH ASDIRECTED PRN Keep Vein Open Discontinued Medications Generic Name Dose Route Start Last Admin Trade Name Freq PRN Reason Stop Dose Admin Sodium Chloride 1,000 mls @ 999 mls/hr 08/31/18 14:02 08/31/18 14:18 Normal Saline IV 08/31/18 15:02 999 mls/hr .BOLUS ONE Administration - Re-Assessments/Exams Free Text/Narrative Re-Assessment/Exam: 08/31/18 13:42 Paced rhythm on equipment monitor phototypesetting. Departure - Departure Time of Disposition: 15:28 (admitted to Dr. Ba) Disposition: Refer to Observation Condition: Fair Clinical Impression: Dehydration, Orthostatic hypotension, Frequent falls, History of Parkinson's disease - Discharge Information *PRESCRIPTION DRUG MONITORING PROGRAM REVIEWED*: Not Applicable *COPY OF PRESCRIPTION DRUG MONITORING REPORT IN PATIENT MATHEUS: Not Applicable Forms: ED Department Discharge - My Orders Last 24 Hours: My Active Orders 08/31/18 13:22 Sodium Chloride 0.9% [Saline Flush] 10 ml FLUSH ASDIRECTED PRN Peripheral IV Insertion Adult [OM.PC] Stat 08/31/18 13:23 Peripheral IV Care [RC] . DIRECTED Chest 1V Frontal [CR] Stat 08/31/18 13:49 Orthostatic Vital Signs [RC] ASDIRECTED - Assessment/Plan Last 24 Hours: My Active Orders 08/31/18 13:22 Sodium Chloride 0.9% [Saline Flush] 10 ml FLUSH ASDIRECTED PRN Peripheral IV Insertion Adult [OM.PC] Stat 08/31/18 13:23 Peripheral IV Care [RC] . DIRECTED Chest 1V Frontal [CR] Stat 08/31/18 13:49 Orthostatic Vital Signs [RC] ASDIRECTED
[2018-08-31 13:55] LABS: ANION GAP 12.2
[2018-08-31] MEDS ORDERED: Sodium Chloride 0.9% 1,000 ML IV ONE (14:02)
--- NOTE | 2018-08-31 16:13 | CR ---
Clinical history: 88-year-old male shortness of breath and hypotension. Interpretation: No acute new cardiopulmonary abnormality since 06 Jan 2018 exam. Note: Subtle nodular density right lung apex with some ipsilateral apical pleural thickening not appreciated on previous exam and suggest considering elective unenhanced CT scan follow-up. (Probable nipple shadow left lung base). 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 Cardiac pacemaker leads intact. Normal cardiac silhouette without cephalization of flow and new signs of alveolar edema or dependent pleural effusion. No other lung mass or focal lobar pneumonia. No atelectasis/collapse. No pneumothorax. CONCLUSION: No signs of heart failure or lobar pneumonia. (See comments above regarding possible lung nodule/mass)
[2018-08-31] MEDS ORDERED: Ondansetron 4 MG Tab.DIS PO PRN (16:21)
--- NOTE | 2018-08-31 16:40 | PCM.HP ---
H&P History of Present Illness - General Date of Service: 08/31/18 Admit Problem/Dx: Admission Diagnosis/Problem Admission Diagnosis/Problem Orthostatic hypotension Source of Information: Patient, Family, Other (ED Provider and Assisted Living Staff) - History of Present Illness Initial Comments - Free Text/Narative: Mr. Nunes is an 88 y.o male with history of Parkinson's disease, Grade II diastolic dysfuction, HLP, GERD, Nevarez esophagus, and arthritis who lives with the in assisted living. Was sent to the ED by assisted living staff for hypotension and frequent falls. Per patient, he fell about 6 times yesterday. Denies head trauma. Reports that he fell in the past but has been doing well until yesterday. Patient has a soft-whispering voice so further information was obtained from patient's assisted living staff. They report that patient was having frequent falls but it was discovered that his was not giving him his medications as prescribed. Around April last year, the assisted living took over medication management. Patient has been doing well since. they report that patient was his normal self yesterday but appeared very weak today. They found that he was hypotensive and brought him to the ED. In the ED patient was noted to have orthostatic hypotension with supine BP of 128/ 68, sitting BP of 114/62, and standing BP of 88/55. His HR was 70, 74, and 72 respectively. He was given a bolus of fluids in the ED. Patient reports increased thirst today. patient denies chest pain, fevers, chills, spinning sensation, head trauma, tinnitus, shortness of of breath, abdominal pain, n/v/d/c, melena hematochezia, dysuria, hematuria, or any other symptom. Onset of Symptoms: Reports: Today, Sudden - Related Data Allergies/Adverse Reactions: Allergies Allergy/AdvReac Type Severity Reaction Status Date / Time alprazolam Allergy Other Verified 08/27/17 23:31 tamsulosin [From Flomax] AdvReac Dizziness Verified 08/27/17 23:31 Home Medications: Home Meds Aspirin [Halfprin] 81 mg PO DAILY 08/20/16 [History] Carbidopa/Levodopa [Carbidopa-Levodopa 25-250] 1.5 tab PO 5XDAY 08/20/16 [ History] Cyanocobalamin (Vitamin B-12) [B-12] 1 injection INJECT .EVERY 30 DAYS 08/20/16 [History] Docusate Sodium [Colace] 100 mg PO BID PRN 08/20/16 [History] Escitalopram [Lexapro] 20 mg PO DAILY 08/20/16 [History] Mirtazapine 2 tab PO BEDTIME 08/20/16 [History] Omeprazole 20 mg PO BID 08/20/16 [History] Polyethylene Glycol 3350 [Miralax] 17 g PO DAILY 08/20/16 [History] Simvastatin 20 mg PO BEDTIME 08/20/16 [History] busPIRone [Buspar] 20 mg PO BID 08/20/16 [History] Midodrine 10 mg PO BID 01/06/18 [History] Past Medical History HEENT History: Reports: Other (See Below) Other HEENT History: 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 Cardiovascular History: Reports: High Cholesterol, Hypertension, Pacemaker Respiratory History: Reports: None Gastrointestinal History: Reports: GERD, PUD, Other (See Below) Other Gastrointestinal History: HX OF NEVAREZ ESOPHAGUS Genitourinary History: Reports: None Musculoskeletal History: Reports: Arthritis, Other (See Below) Other Musculoskeletal History: DEGENERATIVE JOINT DISEASE Neurological History: Reports: Head Trauma, Parkinson's Psychiatric History: Reports: Anxiety Endocrine/Metabolic History: Reports: None Hematologic History: Reports: Anemia Immunologic History: Reports: None Oncologic (Cancer) History: Reports: None Dermatologic History: Reports: None - Infectious Disease History Infectious Disease History: Reports: Chicken Pox, Measles, Mumps - Past Surgical History Cardiovascular Surgical History: Reports: Pacer Male Surgical History: Reports: TURP-Transurethral Resection of Prostate - History Comment History Comment: Reviewe. Social & Family History - Family History Family Medical History: Noncontributory - Tobacco Use Smoking Status *Q: Never Smoker - Caffeine Use Caffeine Use: Reports: Coffee - Recreational Drug Use Recreational Drug Use: No - Living Situation & Occupation Living situation: Reports: , with Spouse, Assisted Living Occupation: Retired H&P Review of Systems - Review of Systems: Review Of Systems: ROS reveals no pertinent complaints other than HPI. Exam - Exam Exam: See Below (General: Alert and oriented to place, time and person) - Vital Signs Vital Signs: Last Vital Signs Temp 97.6 F 08/31/18 13:25 Pulse 70 08/31/18 13:25 Resp 16 08/31/18 13:25 BP 119/67 08/31/18 13:25 Pulse Ox 97 08/31/18 13:25 Orthostatic Blood Pressure [ 88/55 Standing] Orthostatic Blood Pressure [ 114/62 Sitting] Orthostatic Blood Pressure [ 128/68 Supine] Weight: 180 lb - Exam Physical Exam Comments:: General: Alert and oriented to place, time and person, soft whispering voice. Head: atraumatic and normocephalic. Eyes: PERRLA, EOMI, anicteric, Ear, Nose, Mouth, and Throat: Dry oral mucosa, hearing intact Neck: Supple Respiratory/Chest: CTAB, no wheezes, crackles, rales, or rhonci; Good air entry bilaterally. No increased work of breathing CVS: Tachcyardic, RR, no murmur, rub, or gallop, peripheral pulses palpable. Gastrointestinal/Abd: Soft, non-distended, non-tender. Normal bowel sounds. No organomegaly. Skin: No acute rashes noted. Neuro: Very soft, whispering voice, 4/5 motor function in upper and lower extremities; No cranial nerve abnormality. Moves all extremities. Psych: Alert and oriented to place time and person. No hallucinations or delusions noted. Musculoskeletal: No abnormality noted. Ext: Old scab on knees bilaterally, left shoulder with slight bruise, No edema, no ulcers, no tenderness, no size differences, - Patient Data Lab Results Last 24 hrs: Laboratory Results - last 24 hr 08/31/18 08/31/18 08/31/18 Range/Units 13:29 13:29 15:03 WBC 6.8 (5.0-10.0) 10^3/uL RBC 3.82 L (4.6-6.2) 10^6/uL Hgb 11.6 L (14.0-18.0) g/dL Hct 35.1 L (40.0-54.0) % MCV 91.9 (80-100) fL MCH 30.4 (27.0-34.0) pg MCHC 33.0 (33.0-35.0) g/dL Plt Count 180 (150-450) 10^3/uL Neut % (Auto) 65.2 (42.2-75.2) % Lymph % (Auto) 19.8 L (20.5-50.1) % [place] % (Auto) 12.9 H (2-8) % Eos % (Auto) 1.8 (1.0-3.0) % Baso % (Auto) 0.3 (0.0-1.0) % Sodium 137 (135-145) mmol/L Potassium 4.2 (3.6-5.0) mmol/L Chloride 102 (101-111) mmol/L Carbon Dioxide 27.0 (21.0-31.0) mmol/L Anion Gap 12.2 BUN 29 H (7-18) mg/dL Creatinine 1.3 (0.6-1.3) mg/dL Est Cr Clr Drug Dosing 47.10 mL/min Estimated GFR (MDRD) 52 BUN/Creatinine Ratio 22.30 Glucose 135 H (74-105) mg/dL Calcium 8.7 (8.4-10.2) mg/dl Total Bilirubin 0.6 (0.2-1.0) mg/dL AST 25 (10-42) IU/L ALT 7 L (10-60) IU/L Alkaline Phosphatase 160 H (42-121) IU/L Total Protein 6.4 L (6.7-8.2) g/dl Albumin 3.8 (3.2-5.5) g/dl Globulin 2.6 Albumin/Globulin Ratio 1.46 Urine Color Yellow (YELLOW) Urine Appearance Slightly cloudy (CLEAR) Urine pH 7.0 (5.0-9.0) Ur Specific [place] 1.020 (1.005-1.030) Urine Protein Trace H (NEGATIVE) Urine Glucose (UA) Negative (NEGATIVE) Urine Ketones Trace H (NEGATIVE) Urine Occult Blood Negative (NEGATIVE) Urine Nitrite Negative (NEGATIVE) Urine Bilirubin Negative (NEGATIVE) Urine Urobilinogen 2.0 H (0.2-1.0) mg/dL Ur Leukocyte Esterase Negative (NEGATIVE) Urine RBC 0-5 /HPF Urine WBC 0-5 (0-5/HPF) /HPF Ur Epithelial Cells Rare /HPF Urine Bacteria Rare (0-FEW/HPF) /HPF Hyaline Casts Few H /LPF Urine Mucus Moderate H /LPF Result Diagrams: 08/31/18 13:29 08/31/18 13:29 *Q Meaningful Use (ADM) - VTE *Q VTE Mechanical Contraindications *Q: At Risk for Falls - Problem List (1) Dehydration SNOMED Code(s): 34055572 ICD Code: E86.0 - DEHYDRATION Status: Acute Current Visit: No (2) Fall in home SNOMED Code(s): 86265580 ICD Code: W19.XXXA - UNSPECIFIED FALL, INITIAL ENCOUNTER; Y92.009 - UNSP PLACE IN UNSP NON-INSTITUT (PRIVATE) RESIDENCE PLACE Status: Acute Current Visit: No Qualifiers: Encounter type: initial encounter Qualified Code(s): W19.XXXA - Unspecified fall, initial encounter; Y92.009 - Unspecified place in unspecified non-institutional (private) residence as the place of occurrence of the external cause (3) Frequent falls SNOMED Code(s): 162012407 ICD Code: R29.6 - REPEATED FALLS Status: Acute Current Visit: No (4) Orthostatic hypotension SNOMED Code(s): 22844371 ICD Code: I95.1 - ORTHOSTATIC HYPOTENSION Status: Acute Current Visit: No (5) Parkinson disease SNOMED Code(s): 93294926 ICD Code: G20 - PARKINSON'S DISEASE Status: Acute Current Visit: No Problem List Initiated/Reviewed/Updated: Yes Orders Last 24hrs: Active Orders 24 hr Category Date Time Status Patient Status [ADT] Routine ADT 08/31/18 16:21 Ordered Bedrest Bedside Commode [RC] ASDIRECTED Care 08/31/18 16:21 Ordered Height and Weight [RC] UPON Care 08/31/18 16:21 Ordered Intake and Output [RC] QSHIFT Care 08/31/18 16:25 Ordered Orthostatic Vital Signs [RC] ASDIRECTED Care 08/31/18 13:49 Active Oxygen Therapy [RC] PRN Care 08/31/18 16:21 Ordered Peripheral IV Care [RC] . DIRECTED Care 08/31/18 13:23 Active Up With Assistance [RC] ASDIRECTED Care 08/31/18 16:21 Ordered VTE/DVT Education [RC] PER UNIT ROUTINE Care 08/31/18 16:21 Ordered Vital Signs [RC] Q4H Care 08/31/18 16:21 Ordered OT Evaluation and Treatment [CONS] Routine Cons 08/31/18 16:21 Ordered PT Evaluation and Treatment [CONS] Routine Cons 08/31/18 16:21 Ordered OIL PAINTER Evaluation and Treatment [CONS] Routine Cons 08/31/18 16:21 Ordered Regular Diet [DIET] Diet 08/31/18 Dinner Ordered BASIC METABOLIC PANEL,BMP [CHEM] AM Lab 09/01/18 05:11 Ordered CBC WITH AUTO DIFF [HEME] AM Lab 09/01/18 05:11 Ordered Heparin Sodium Med 08/31/18 22:00 Ordered 5,000 units SUBCUT Q8HR Ondansetron [Zofran ODT] Med 08/31/18 16:21 Ordered 4 mg PO Q4H PRN Sodium Chloride 0.9% [Saline Flush] Med 08/31/18 13:22 Active 10 ml FLUSH ASDIRECTED PRN Peripheral IV Insertion Adult [OM.PC] Stat Oth 08/31/18 13:22 Ordered VTE Mechanical Contraindications [AST] Per Unit Routine Oth 08/31/18 16:21 Ordered Resuscitation Status Routine Resus Stat 08/31/18 16:21 Ordered Medication Orders Heparin Sodium (Porcine) (Heparin Sodium) 5,000 units SUBCUT Q8HR MAX Ondansetron HCl (Zofran Odt) 4 mg PO Q4H PRN PRN Reason: nausea, able to take PO Sodium Chloride (Saline Flush) 10 ml FLUSH ASDIRECTED PRN PRN Reason: Keep Vein Open Assessment/Plan Comment:: #Orthostatic hypotension: BP down from 114/62 while sitting to 88/55 while standing. Patient appears dry with dry oral mucosa. Received 1 L of IVF bolus in ED. - Gentle fluid resuscitation, - Fall precautions. - Orthostatic vitals q shift - Resume midodrine - Obtain EKG. - Monitor on telemetry #Frequent falls: - PT/OT - Fall precautions #Parkinson's disease: - Resume home medications. #Grade II diastolic dysfunction: - On echo in 2017. - Gentle with fluids. #HLP: continue home meds #GERD: continue PPI DVT PPx: Heparin GI PPx: Cardiac diet Code: DNR/DNI
[2018-08-31] MEDS ORDERED: Docusate Sodium 100 MG Cap PO PRN (16:59)
[2018-08-31] MEDS ORDERED: Lactated Ringers 1,000 ML IV SCH (17:30)
[2018-08-31] MEDS: Carbidopa/Levodopa 25-250 MG Tab PO SCH ×2 (18:17→20:39)
[2018-08-31] MEDS: Lactated Ringers 1,000 ML IV SCH (18:25)
[2018-08-31] MEDS: busPIRone 15 MG Tab PO SCH (20:38)
[2018-08-31] MEDS: Midodrine 2.5 MG Tab PO SCH (20:42)
[2018-08-31] MEDS: Omeprazole 20 MG Cap.CR PO SCH (20:44)
[2018-08-31] MEDS ORDERED: Mirtazapine 15 MG Tab PO SCH (21:00)
[2018-08-31] MEDS ORDERED: Simvastatin 10 MG Tab PO SCH (21:00)
[2018-08-31] MEDS: Heparin Sodium 5,000 Units/ML Vial SUBCUT SCH (22:31)
[2018-09-01] MEDS: Lactated Ringers 1,000 ML IV SCH (03:52)
[2018-09-01] MEDS: Heparin Sodium 5,000 Units/ML Vial SUBCUT SCH ×2 (06:01→13:54)
[2018-09-01 07:03] LABS: ANION GAP 11.7; CHLORIDE,CL 103 mmol/L (101-111); SODIUM,NA 138 mmol/L (135-145)
[2018-09-01] MEDS: Midodrine 2.5 MG Tab PO SCH (08:21)
[2018-09-01] MEDS: Carbidopa/Levodopa 25-250 MG Tab PO SCH ×3 (08:22→13:53)
[2018-09-01] MEDS: Omeprazole 20 MG Cap.CR PO SCH (08:22)
[2018-09-01] MEDS: busPIRone 15 MG Tab PO SCH (08:22)
[2018-09-01] MEDS ORDERED: Escitalopram 10 MG Tab PO SCH (09:00)
[2018-09-01] MEDS ORDERED: Polyethylene Glycol 3350 Powder 17 GM Packet PO SCH (09:00)
[2018-09-01] MEDS ORDERED: Aspirin 81 MG Tab.EC PO SCH (09:00)
--- NOTE | 2018-09-01 09:14 | PCM.PN ---
- General Info Date of Service: 09/01/18 Admission Dx/Problem (Free Text): Admission Diagnosis/Problem Admission Diagnosis/Problem Orthostatic hypotension - Patient Data Vitals - Most Recent: Last Vital Signs Temp 98.8 F 09/01/18 07:54 Pulse 69 09/01/18 07:54 Resp 18 09/01/18 07:54 BP 136/94 H 09/01/18 07:54 Pulse Ox 98 09/01/18 07:54 Orthostatic Blood Pressure [ 96/54 Standing] Orthostatic Blood Pressure [ 138/74 Sitting] Orthostatic Blood Pressure [ 147/83 Supine] Weight - Most Recent: 180 lb I&O - Last 24 Hours: Intake & Output 08/31/18 09/01/18 09/01/18 22:59 06:59 14:59 Intake Total 960 Output Total 250 800 200 Balance -250 160 -200 Lab Results Last 24 Hours: Laboratory Results - last 24 hr 08/31/18 08/31/18 08/31/18 Range/Units 13:29 13:29 15:03 WBC 6.8 (5.0-10.0) 10^3/uL RBC 3.82 L (4.6-6.2) 10^6/uL Hgb 11.6 L (14.0-18.0) g/dL Hct 35.1 L (40.0-54.0) % MCV 91.9 (80-100) fL MCH 30.4 (27.0-34.0) pg MCHC 33.0 (33.0-35.0) g/dL Plt Count 180 (150-450) 10^3/uL Neut % (Auto) 65.2 (42.2-75.2) % Lymph % (Auto) 19.8 L (20.5-50.1) % [place] % (Auto) 12.9 H (2-8) % Eos % (Auto) 1.8 (1.0-3.0) % Baso % (Auto) 0.3 (0.0-1.0) % Sodium 137 (135-145) mmol/L Potassium 4.2 (3.6-5.0) mmol/L Chloride 102 (101-111) mmol/L Carbon Dioxide 27.0 (21.0-31.0) mmol/L Anion Gap 12.2 BUN 29 H (7-18) mg/dL Creatinine 1.3 (0.6-1.3) mg/dL Est Cr Clr Drug Dosing 47.10 mL/min Estimated GFR (MDRD) 52 BUN/Creatinine Ratio 22.30 Glucose 135 H (74-105) mg/dL Calcium 8.7 (8.4-10.2) mg/dl Total Bilirubin 0.6 (0.2-1.0) mg/dL AST 25 (10-42) IU/L ALT 7 L (10-60) IU/L Alkaline Phosphatase 160 H (42-121) IU/L Total Protein 6.4 L (6.7-8.2) g/dl Albumin 3.8 (3.2-5.5) g/dl Globulin 2.6 Albumin/Globulin Ratio 1.46 Urine Color Yellow (YELLOW) Urine Appearance Slightly cloudy (CLEAR) Urine pH 7.0 (5.0-9.0) Ur Specific [place] 1.020 (1.005-1.030) Urine Protein Trace H (NEGATIVE) Urine Glucose (UA) Negative (NEGATIVE) Urine Ketones Trace H (NEGATIVE) Urine Occult Blood Negative (NEGATIVE) Urine Nitrite Negative (NEGATIVE) Urine Bilirubin Negative (NEGATIVE) Urine Urobilinogen 2.0 H (0.2-1.0) mg/dL Ur Leukocyte Esterase Negative (NEGATIVE) Urine RBC 0-5 /HPF Urine WBC 0-5 (0-5/HPF) /HPF Ur Epithelial Cells Rare /HPF Urine Bacteria Rare (0-FEW/HPF) /HPF Hyaline Casts Few H /LPF Urine Mucus Moderate H /LPF 09/01/18 09/01/18 Range/Units 05:55 05:55 WBC 6.1 (5.0-10.0) 10^3/uL RBC 3.91 L (4.6-6.2) 10^6/uL Hgb 11.7 L (14.0-18.0) g/dL Hct 35.6 L (40.0-54.0) % MCV 91.0 (80-100) fL MCH 29.9 (27.0-34.0) pg MCHC 32.9 L (33.0-35.0) g/dL Plt Count 181 (150-450) 10^3/uL Neut % (Auto) 62.4 (42.2-75.2) % Lymph % (Auto) 18.5 L (20.5-50.1) % [place] % (Auto) 15.8 H (2-8) % Eos % (Auto) 2.8 (1.0-3.0) % Baso % (Auto) 0.5 (0.0-1.0) % Sodium 138 (135-145) mmol/L Potassium 3.7 (3.6-5.0) mmol/L Chloride 103 (101-111) mmol/L Carbon Dioxide 27.0 (21.0-31.0) mmol/L Anion Gap 11.7 BUN 20 H (7-18) mg/dL Creatinine 0.9 (0.6-1.3) mg/dL Est Cr Clr Drug Dosing 68.04 mL/min Estimated GFR (MDRD) > 60 BUN/Creatinine Ratio Glucose 89 (74-105) mg/dL Calcium 8.5 (8.4-10.2) mg/dl Total Bilirubin (0.2-1.0) mg/dL AST (10-42) IU/L ALT (10-60) IU/L Alkaline Phosphatase (42-121) IU/L Total Protein (6.7-8.2) g/dl Albumin (3.2-5.5) g/dl Globulin Albumin/Globulin Ratio Urine Color (YELLOW) Urine Appearance (CLEAR) Urine pH (5.0-9.0) Ur Specific [place] (1.005-1.030) Urine Protein (NEGATIVE) Urine Glucose (UA) (NEGATIVE) Urine Ketones (NEGATIVE) Urine Occult Blood (NEGATIVE) Urine Nitrite (NEGATIVE) Urine Bilirubin (NEGATIVE) Urine Urobilinogen (0.2-1.0) mg/dL Ur Leukocyte Esterase (NEGATIVE) Urine RBC /HPF Urine WBC (0-5/HPF) /HPF Ur Epithelial Cells /HPF Urine Bacteria (0-FEW/HPF) /HPF Hyaline Casts /LPF Urine Mucus /LPF Med Orders - Current: Current Medications Aspirin (Halfprin) 81 mg PO DAILY [facility] Last Admin: 09/01/18 08:22 Dose: 81 mg Buspirone HCl (Buspar) 20 mg PO BID [facility] Last Admin: 09/01/18 08:22 Dose: 20 mg Carbidopa/Levodopa (Sinemet 25-250 Mg) 1.5 tab PO 5XDAY [facility] Last Admin: 09/01/18 08:22 Dose: 1.5 tab Cyanocobalamin (Vitamin B12) 1,000 mcg IM .EVERY 30 DAYS [facility] Docusate Sodium (Colace) 100 mg PO BID PRN PRN Reason: Constipation Escitalopram Oxalate (Lexapro) 20 mg PO DAILY [facility] Last Admin: 09/01/18 08:22 Dose: 20 mg Heparin Sodium (Porcine) (Heparin Sodium) 5,000 units SUBCUT Q8HR [facility] Last Admin: 09/01/18 06:01 Dose: 5,000 units Lactated Ringer's (Ringers, Lactated) 1,000 mls @ 100 mls/hr IV ASDIRECTED [facility] Last Admin: 09/01/18 03:52 Dose: 100 mls/hr Midodrine (Midodrine) 10 mg PO BID [facility] Last Admin: 09/01/18 08:21 Dose: 10 mg Mirtazapine (Remeron) 30 mg PO BEDTIME [facility] Last Admin: 08/31/18 20:43 Dose: 30 mg Omeprazole (Omeprazole) 20 mg PO BID [facility] Last Admin: 09/01/18 08:22 Dose: 20 mg Ondansetron HCl (Zofran Odt) 4 mg PO Q4H PRN PRN Reason: nausea, able to take PO Polyethylene Glycol (Miralax) 17 gm PO DAILY [facility] Last Admin: 09/01/18 08:24 Dose: Not Given Simvastatin (Zocor) 20 mg PO BEDTIME [facility] Last Admin: 08/31/18 20:41 Dose: 20 mg Sodium Chloride (Saline Flush) 10 ml FLUSH ASDIRECTED PRN PRN Reason: Keep Vein Open Discontinued Medications Sodium Chloride (Normal Saline) 1,000 mls @ 999 mls/hr IV .BOLUS ONE Stop: 08/31/18 15:02 Last Admin: 08/31/18 14:18 Dose: 999 mls/hr Lactated Ringer's (Ringers, Lactated) 1,000 mls @ 125 mls/hr IV ASDIRECTED [facility] - Problem List & Annotations (1) Dehydration SNOMED Code(s): 31566113 Code(s): E86.0 - DEHYDRATION Status: Acute Current Visit: No (2) Fall in home SNOMED Code(s): 06372931 Code(s): W19.XXXA - UNSPECIFIED FALL, INITIAL ENCOUNTER; Y92.009 - UNSP PLACE IN UNSP NON-INSTITUT (PRIVATE) RESIDENCE PLACE Status: Acute Current Visit: No Qualifiers: Encounter type: initial encounter Qualified Code(s): W19.XXXA - Unspecified fall, initial encounter; Y92.009 - Unspecified place in unspecified non-institutional (private) residence as the place of occurrence of the external cause (3) Frequent falls SNOMED Code(s): 282616618 Code(s): R29.6 - REPEATED FALLS Status: Acute Current Visit: No (4) Orthostatic hypotension SNOMED Code(s): 87087797 Code(s): I95.1 - ORTHOSTATIC HYPOTENSION Status: Acute Current Visit: No (5) Parkinson disease SNOMED Code(s): 83361397 Code(s): G20 - PARKINSON'S DISEASE Status: Acute Current Visit: No - My Orders Last 24 Hours: My Active Orders 08/31/18 16:21 Patient Status [ADT] Routine Bedrest Bedside Commode [RC] ASDIRECTED Oxygen Therapy [RC] PRN Up With Assistance [RC] ASDIRECTED VTE/DVT Education [RC] Vital Signs [RC] Q4H OT Evaluation and Treatment [CONS] Routine PT Evaluation and Treatment [CONS] 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 [CONS] Routine Ondansetron [Zofran ODT] 4 mg PO Q4H PRN VTE Mechanical Contraindications [AST] Per Unit Routine Resuscitation Status Routine 08/31/18 16:25 Intake and Output [RC] 08,20 08/31/18 16:59 Docusate Sodium [Colace] 100 mg PO BID PRN 08/31/18 17:26 EKG 12 Lead [EKG Documentation Completion] [RC] DAILY 08/31/18 18:00 Carbidopa/Levodopa [Sinemet 25-250 mg] 1.5 tab PO 5XDAY 08/31/18 18:15 Lactated Ringers [Ringers, Lactated] 1,000 ml IV ASDIRECTED 08/31/18 21:00 Midodrine 10 mg PO BID Mirtazapine [Remeron] 30 mg PO BEDTIME Omeprazole 20 mg PO BID Simvastatin [Zocor] 20 mg PO BEDTIME busPIRone [Buspar] 20 mg PO BID 08/31/18 22:00 Heparin Sodium 5,000 units SUBCUT Q8HR 08/31/18 Dinner Regular Diet [DIET] 09/01/18 09:00 Aspirin [Halfprin] 81 mg PO DAILY Escitalopram [Lexapro] 20 mg PO DAILY Polyethylene Glycol 3350 [MiraLAX] 17 gm PO DAILY 10/01/18 09:00 Cyanocobalamin (Vitamin B12) [Vitamin B12] 1,000 mcg IM .EVERY 30 DAYS - Plan Plan:: #Orthostatic hypotension: BP down from 114/62 while sitting to 88/55 while standing. Patient appears dry with dry oral mucosa. Received 1 L of IVF bolus in ED. - Gentle fluid resuscitation, - Fall precautions. - Orthostatic vitals q shift - Resume midodrine - Obtain EKG. - Monitor on telemetry #Frequent falls: - PT/OT - Fall precautions #Parkinson's disease: - Resume home medications. #Grade II diastolic dysfunction: - On echo in 2017. - Gentle with fluids. #HLP: continue home meds #GERD: continue PPI DVT PPx: Heparin GI PPx: Cardiac diet Code: DNR/DNI
--- NOTE | 2018-09-01 13:58 | PCM.DCSUM1 ---
Discharge Summary - Hospital Course Free Text/Narrative:: 88 y.o male with history of Parkinson Disease and orthostatic hypotension who presented with frequent falls and low blood pressure at Assisted Living facility. Orthostatic vitals were positive. He was given fluid bolus in the ED and placed on gentle fluid resuscitation due to history of grade II diastolic heart failure. He remained orthostatic. PT went to work with patient and SBP on standing was 88. I contacted his neurologist and he recommended patient be admitted for neurologic consultation and medication titration. He is being transferred to [facility]. Dr. Vaughn is accepting physician. HPI Initial Comments: Mr. Nunes is an 88 y.o male with history of Parkinson's disease, Grade II diastolic dysfuction, HLP, GERD, [place] esophagus, and arthritis who lives with the in assisted living. Was sent to the ED by assisted living staff for hypotension and frequent falls. Per patient, he fell about 6 times yesterday. Denies head trauma. Reports that he fell in the past but has been doing well until yesterday. Patient has a soft-whispering voice so further information was obtained from patient's assisted living staff. They report that patient was having frequent falls but it was discovered that his was not giving him his medications as prescribed. Around April last year, the assisted living took over medication management. Patient has been doing well since. they report that patient was his normal self yesterday but appeared very weak today. They found that he was hypotensive and brought him to the ED. In the ED patient was noted to have orthostatic hypotension with supine BP of 128/ 68, sitting BP of 114/62, and standing BP of 88/55. His HR was 70, 74, and 72 respectively. He was given a bolus of fluids in the ED. Patient reports increased thirst today. patient denies chest pain, fevers, chills, spinning sensation, head trauma, tinnitus, shortness of of breath, abdominal pain, n/v/d/c, melena hematochezia, dysuria, hematuria, or any other symptom. Diagnosis: Stroke: No - Discharge Data Discharge Date: 09/01/18 Discharge Disposition: DC/Tfer to Acute Hospital 02 Condition: Fair - Discharge Diagnosis/Problem(s) (1) Dehydration SNOMED Code(s): 22505340 ICD Code: E86.0 - DEHYDRATION Status: Acute Current Visit: Yes (2) Fall in home SNOMED Code(s): 40985617 ICD Code: W19.XXXA - UNSPECIFIED FALL, INITIAL ENCOUNTER; Y92.009 - UNSP PL[address] IN UNSP NON-INSTITUT (PRIVATE) RESIDENCE PLACE Status: Acute Current Visit: Yes Qualifiers: Encounter type: subsequent encounter Qualified Code(s): W19.XXXD - Unspecified fall, subsequent encounter; Y92.009 - Unspecified place in unspecified non-institutional (private) residence as the place of occurrence of the external cause (3) Frequent falls SNOMED Code(s): 321131681 ICD Code: R29.6 - REPEATED FALLS Status: Acute Current Visit: Yes (4) Orthostatic hypotension SNOMED Code(s): 76495878 ICD Code: I95.1 - ORTHOSTATIC HYPOTENSION Status: Acute Current Visit: Yes (5) Parkinson disease SNOMED Code(s): 27781839 ICD Code: G20 - PARKINSON'S DISEASE Status: Chronic Current Visit: Yes - Patient Summary/Data Consults: Consultations 08/31/18 16:21 OT Evaluation and Treatment [CONS] Routine PT Evaluation and Treatment [CONS] Routine 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 [CONS] Routine - Patient Instructions Diet: Regular Diet as Tolerated Driving: Do Not Drive - Discharge Plan *PRESCRIPTION DRUG MONITORING PROGRAM REVIEWED*: Not Applicable *COPY OF PRESCRIPTION DRUG MONITORING REPORT IN PATIENT MATHEUS: Not Applicable Home Medications: Home Meds RX: Aspirin [Halfprin] 81 mg PO DAILY 08/20/16 [History] RX: Carbidopa/Levodopa [Carbidopa-Levodopa 25-250] 1.5 tab PO 08/20/16 [ History] RX: Cyanocobalamin (Vitamin B-12) [B-12] 1 injection INJECT .EVERY 30 DAYS 08/20 [History] RX: Docusate Sodium [Colace] 100 mg PO BID PRN 08/20/16 [History] RX: Escitalopram [Lexapro] 20 mg PO DAILY 08/20/16 [History] RX: Mirtazapine 2 tab PO BEDTIME 08/20/16 [History] RX: Omeprazole 20 mg PO BID 08/20/16 [History] RX: Polyethylene Glycol 3350 [Miralax] 17 g PO DAILY 08/20/16 [History] RX: Simvastatin 20 mg PO BEDTIME 08/20/16 [History] RX: busPIRone [Buspar] 20 mg PO BID 08/20/16 [History] RX: Midodrine 10 mg PO BID 01/06/18 [History] Oxygen Therapy Mode: Room Air Forms: ED Department Discharge Referrals: PCP,None [Primary Care Provider] - - Discharge Summary/Plan Comment DC Time >30 min.: Yes - General Info Date of Service: 09/01/18 - Review of Systems General: Reports: No Symptoms HEENT: Reports: No Symptoms Pulmonary: Reports: No Symptoms Cardiovascular: Reports: No Symptoms Gastrointestinal: Reports: No Symptoms Genitourinary: Reports: No Symptoms Musculoskeletal: Reports: No Symptoms Skin: Reports: No Symptoms Neurological: Reports: No Symptoms Psychiatric: Reports: No Symptoms - Patient Data Vitals - Most Recent: Last Vital Signs Temp 98.8 F 09/01/18 11:27 Pulse 69 09/01/18 11:27 Resp 20 09/01/18 11:27 BP 125/69 09/01/18 11:27 Pulse Ox 100 09/01/18 11:27 Orthostatic Blood Pressure [ 96/54 Standing] Orthostatic Blood Pressure [ 138/74 Sitting] Orthostatic Blood Pressure [ 147/83 Supine] Weight - Most Recent: 180 lb I&O - Last 24 hours: Intake & Output 08/31/18 09/01/18 09/01/18 22:59 06:59 14:59 Intake Total 960 600 Output Total 250 800 200 Balance -250 160 400 Lab Results - Last 24 hrs: Laboratory Results - last 24 hr 08/31/18 08/31/18 09/01/18 Range/Units 13:29 15:03 05:55 WBC 6.1 (5.0-10.0) 10^3/uL RBC 3.91 L (4.6-6.2) 10^6/uL Hgb 11.7 L (14.0-18.0) g/dL Hct 35.6 L (40.0-54.0) % MCV 91.0 (80-100) fL MCH 29.9 (27.0-34.0) pg MCHC 32.9 L (33.0-35.0) g/dL Plt Count 181 (150-450) 10^3/uL Neut % (Auto) 62.4 (42.2-75.2) % Lymph % (Auto) 18.5 L (20.5-50.1) % [place] % (Auto) 15.8 H (2-8) % Eos % (Auto) 2.8 (1.0-3.0) % Baso % (Auto) 0.5 (0.0-1.0) % Sodium 137 (135-145) mmol/L Potassium 4.2 (3.6-5.0) mmol/L Chloride 102 (101-111) mmol/L Carbon Dioxide 27.0 (21.0-31.0) mmol/L Anion Gap 12.2 BUN 29 H (7-18) mg/dL Creatinine 1.3 (0.6-1.3) mg/dL Est Cr Clr Drug Dosing 47.10 mL/min Estimated GFR (MDRD) 52 BUN/Creatinine Ratio 22.30 Glucose 135 H (74-105) mg/dL Calcium 8.7 (8.4-10.2) mg/dl Total Bilirubin 0.6 (0.2-1.0) mg/dL AST 25 (10-42) IU/L ALT 7 L (10-60) IU/L Alkaline Phosphatase 160 H (42-121) IU/L Total Protein 6.4 L (6.7-8.2) g/dl Albumin 3.8 (3.2-5.5) g/dl Globulin 2.6 Albumin/Globulin Ratio 1.46 Urine Color Yellow (YELLOW) Urine Appearance Slightly cloudy (CLEAR) Urine pH 7.0 (5.0-9.0) Ur Specific [place] 1.020 (1.005-1.030) Urine Protein Trace H (NEGATIVE) Urine Glucose (UA) Negative (NEGATIVE) Urine Ketones Trace H (NEGATIVE) Urine Occult Blood Negative (NEGATIVE) Urine Nitrite Negative (NEGATIVE) Urine Bilirubin Negative (NEGATIVE) Urine Urobilinogen 2.0 H (0.2-1.0) mg/dL Ur Leukocyte Esterase Negative (NEGATIVE) Urine RBC 0-5 /HPF Urine WBC 0-5 (0-5/HPF) /HPF Ur Epithelial Cells Rare /HPF Urine Bacteria Rare (0-FEW/HPF) /HPF Hyaline Casts Few H /LPF Urine Mucus Moderate H /LPF 09/01/18 Range/Units 05:55 WBC (5.0-10.0) 10^3/uL RBC (4.6-6.2) 10^6/uL Hgb (14.0-18.0) g/dL Hct (40.0-54.0) % MCV (80-100) fL MCH (27.0-34.0) pg MCHC (33.0-35.0) g/dL Plt Count (150-450) 10^3/uL Neut % (Auto) (42.2-75.2) % Lymph % (Auto) (20.5-50.1) % [place] % (Auto) (2-8) % Eos % (Auto) (1.0-3.0) % Baso % (Auto) (0.0-1.0) % Sodium 138 (135-145) mmol/L Potassium 3.7 (3.6-5.0) mmol/L Chloride 103 (101-111) mmol/L Carbon Dioxide 27.0 (21.0-31.0) mmol/L Anion Gap 11.7 BUN 20 H (7-18) mg/dL Creatinine 0.9 (0.6-1.3) mg/dL Est Cr Clr Drug Dosing 68.04 mL/min Estimated GFR (MDRD) > 60 BUN/Creatinine Ratio Glucose 89 (74-105) mg/dL Calcium 8.5 (8.4-10.2) mg/dl Total Bilirubin (0.2-1.0) mg/dL AST (10-42) IU/L ALT (10-60) IU/L Alkaline Phosphatase (42-121) IU/L Total Protein (6.7-8.2) g/dl Albumin (3.2-5.5) g/dl Globulin Albumin/Globulin Ratio Urine Color (YELLOW) Urine Appearance (CLEAR) Urine pH (5.0-9.0) Ur Specific [place] (1.005-1.030) Urine Protein (NEGATIVE) Urine Glucose (UA) (NEGATIVE) Urine Ketones (NEGATIVE) Urine Occult Blood (NEGATIVE) Urine Nitrite (NEGATIVE) Urine Bilirubin (NEGATIVE) Urine Urobilinogen (0.2-1.0) mg/dL Ur Leukocyte Esterase (NEGATIVE) Urine RBC /HPF Urine WBC (0-5/HPF) /HPF Ur Epithelial Cells /HPF Urine Bacteria (0-FEW/HPF) /HPF Hyaline Casts /LPF Urine Mucus /LPF Med Orders - Current: Current Medications Aspirin (Halfprin) 81 mg PO DAILY [facility] Last Admin: 09/01/18 08:22 Dose: 81 mg Buspirone HCl (Buspar) 20 mg PO BID [facility] Last Admin: 09/01/18 08:22 Dose: 20 mg Carbidopa/Levodopa (Sinemet 25-250 Mg) 1.5 tab PO 5XDAY [facility] Last Admin: 09/01/18 11:24 Dose: 1.5 tab Cyanocobalamin (Vitamin B12) 1,000 mcg IM .EVERY 30 DAYS [facility] Docusate Sodium (Colace) 100 mg PO BID PRN PRN Reason: Constipation Escitalopram Oxalate (Lexapro) 20 mg PO DAILY [facility] Last Admin: 09/01/18 08:22 Dose: 20 mg Heparin Sodium (Porcine) (Heparin Sodium) 5,000 units SUBCUT Q8HR [facility] Last Admin: 09/01/18 06:01 Dose: 5,000 units Lactated Ringer's (Ringers, Lactated) 1,000 mls @ 100 mls/hr IV ASDIRECTED [facility] Last Admin: 09/01/18 03:52 Dose: 100 mls/hr Midodrine (Midodrine) 10 mg PO BID [facility] Last Admin: 09/01/18 08:21 Dose: 10 mg Mirtazapine (Remeron) 30 mg PO BEDTIME [facility] Last Admin: 08/31/18 20:43 Dose: 30 mg Omeprazole (Omeprazole) 20 mg PO BID [facility] Last Admin: 09/01/18 08:22 Dose: 20 mg Ondansetron HCl (Zofran Odt) 4 mg PO Q4H PRN PRN Reason: nausea, able to take PO Polyethylene Glycol (Miralax) 17 gm PO DAILY [facility] Last Admin: 09/01/18 08:24 Dose: Not Given Simvastatin (Zocor) 20 mg PO BEDTIME [facility] Last Admin: 08/31/18 20:41 Dose: 20 mg Sodium Chloride (Saline Flush) 10 ml FLUSH ASDIRECTED PRN PRN Reason: Keep Vein Open Discontinued Medications Sodium Chloride (Normal Saline) 1,000 mls @ 999 mls/hr IV .BOLUS ONE Stop: 08/31/18 15:02 Last Admin: 08/31/18 14:18 Dose: 999 mls/hr Lactated Ringer's (Ringers, Lactated) 1,000 mls @ 125 mls/hr IV ASDIRECTED [facility] - Exam General: Reports: Alert, Oriented HEENT: Reports: Pupils Equal, Pupils Reactive, EOMI Neck: Reports: Supple Lungs: Reports: Clear to Auscultation, Normal Respiratory Effort, Other Cardiovascular: Reports: Regular Rate, Regular Rhythm GI/Abdominal Exam: Normal Bowel Sounds, Soft, Non-Tender, No Distention Extremities: Normal Inspection, Non-Tender, No Pedal Edema, Normal Capillary Refill Skin: Reports: Warm, Dry, Intact Neurological: Reports: Other (Soft whispering voice. Intermittent episodes of stiffness. ) Psy/Mental Status: Reports: Alert, Normal Affect, Normal Mood *Q Meaningful Use (DIS) - VTE *Q VTE Mechanical Contraindications *Q: At Risk for Falls
[2018-09-01 14:18] VITALS: BP 113/61
--- NOTE | 2018-09-06 17:58 | EKG ---
08/31/2018 - BARTOLOME MG ANA MARIA - TIME: 1737 hours. Sinus rhythm with a heart rate of 74, borderline left axis deviation. No ST elevation or depression or T wave inversions. NM interval of 219. QTc of 442. [facility] /[id number]
--- NOTE | 2018-09-06 18:25 | EKG ---
08/31/2018 - BARTOLOME MG ANA MARIA - TIME: 1737 hours. Sinus rhythm with a heart rate of 74, borderline left axis deviation. No ST elevation or depression or T wave inversions. ID interval of 219. QTc of 447. [facility] /[id number]
[2018-10-01] MEDS ORDERED: Cyanocobalamin (Vitamin B12) 1,000 MCG/ML SDV IM SCH (09:00)
== END 2018-09-01 14:30 ==
LOC: DL.ED 13:05 → UNDOADMOB 16:07 → DL.MS 16:07
PROVIDERS: ADMIT Internal Medicine; ATTEND Internal Medicine
DX: I95.1 Orthostatic hypotension (principal); E86.0 Dehydration; R29.6 Repeated falls; G20 Parkinson's disease; I11.0 Hypertensive heart disease with heart failure; I50.30 Unspecified diastolic (congestive) heart failure; E78.00 Pure hypercholesterolemia, unspecified; K21.9 Gastro-esophageal reflux disease without esophagitis; W19.XXXA Unspecified fall, initial encounter; Y92.009 Unspecified place in unspecified non-institutional (private) residence as the place of occurrence of the external cause; Z79.82 Long term (current) use of aspirin; Z79.899 Other long term (current) drug therapy
CPT/HCPCS: 36415; 71045; 80048; 80053; 81001; 85025; 93005; 96360; 96361; 97166; 99285; A9270; J1644; J7030; J7120; 97162-GP

== ENCOUNTER 2018-11-29 01:14 | Emergency (ER) | payer MEDICARE, BC ==
[2018-11-29 02:29] VITALS: BP 150/85
--- NOTE | 2018-11-29 03:09 | EDM.PDOC ---
ED HPI GENERAL MEDICAL PROBLEM - General Chief Complaint: Upper Extremity Injury/Pain Stated Complaint: BROKEN SHOULDER Time Seen by Provider: 11/29/18 02:40 Source of Information: Reports: Patient, Family, RN, RN Notes Reviewed History Limitations: Reports: Language Barrier (Patient speaks very softly, unable to hear at times) - History of Present Illness INITIAL COMMENTS - FREE TEXT/NARRATIVE: Pt to ER from [facility] with his . states the patient fell today at some time. This evening began to c/o pain in the left arm. He states he did hit his head but did not get knocked out. Patient has had multiple falls over the past few weeks. Patient is to be up with at least one assist. Patient has Parkinson's and wears a "wander guard". Pt rates pain 10/29. Onset: Today, Sudden Duration: Constant Location: Reports: Upper Extremity, Left Quality: Reports: Throbbing Severity: Moderate Improves with: Reports: None Worsens with: Reports: None - Related Data Allergies Allergy/AdvReac Type Severity Reaction Status Date / Time alprazolam Allergy Other Verified 11/29/18 02:23 tamsulosin [From Flomax] AdvReac Dizziness Verified 11/29/18 02:23 Home Meds: Home Meds Aspirin [Halfprin] 162 mg PO DAILY 08/20/16 [History] Carbidopa/Levodopa [Carbidopa-Levodopa 25-250] 1.5 tab PO 5XDAY 08/20/16 [ History] Docusate Sodium [Colace] 100 mg PO DAILY PRN 08/20/16 [History] Escitalopram [Lexapro] 20 mg PO DAILY 08/20/16 [History] Mirtazapine 2 tab PO BEDTIME 08/20/16 [History] Omeprazole 20 mg PO BID 08/20/16 [History] Polyethylene Glycol 3350 [Miralax] 17 g PO BEDTIME 08/20/16 [History] Simvastatin 20 mg PO BEDTIME 08/20/16 [History] Midodrine 10 mg PO TIDMEALS 01/06/18 [History] busPIRone [Buspar] 20 mg PO BID 09/06/18 [History] Carbidopa/Levodopa [Carbidopa-Levo 25-250 mg Odt] 1 tab PO QID 11/29/18 [History ] Past Medical History HEENT History: Reports: Other (See Below) Other HEENT History: 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 Cardiovascular History: Reports: High Cholesterol, Hypertension, Pacemaker Respiratory History: Reports: None Gastrointestinal History: Reports: GERD, PUD, Other (See Below) Other Gastrointestinal History: HX OF HAIR ESOPHAGUS Genitourinary History: Reports: None Musculoskeletal History: Reports: Arthritis, Other (See Below) Other Musculoskeletal History: DEGENERATIVE JOINT DISEASE Neurological History: Reports: Head Trauma, Parkinson's Psychiatric History: Reports: Anxiety Endocrine/Metabolic History: Reports: None Hematologic History: Reports: Anemia Immunologic History: Reports: None Oncologic (Cancer) History: Reports: None Dermatologic History: Reports: None - Infectious Disease History Infectious Disease History: Reports: Chicken Pox, Shingles - Past Surgical History Cardiovascular Surgical History: Reports: Pacer Male Surgical History: Reports: TURP-Transurethral Resection of Prostate - History Comment History Comment: Reviewe. Social & Family History - Family History Family Medical History: Noncontributory - Tobacco Use Smoking Status *Q: Unknown Ever Smoked - Caffeine Use Caffeine Use: Reports: Coffee - Recreational Drug Use Recreational Drug Use: No - Living Situation & Occupation Living situation: Reports: , with Spouse, Assisted Living Occupation: Retired Review of Systems - Review of Systems Review Of Systems: ROS reveals no pertinent complaints other than HPI. ED EXAM, GENERAL - Physical Exam Exam: See Below Exam Limited By: Language Barrier (Very soft voice, unable to hear patient speak ) General Appearance: Alert, WD/WN, No Apparent Distress Eye Exam: Bilateral Eye: EOMI, Normal Inspection, PERRL (3, sluggish) Ears: Normal External Exam, Hearing Grossly Normal Nose: Normal Inspection Throat/Mouth: Normal Inspection, No Airway Compromise. No: Normal Voice Head: Normocephalic, Other (erythema to the center of the forehead) Neck: Normal Inspection, Supple, Non-Tender, Limited Range of Motion Respiratory/Chest: No Respiratory Distress, Lungs Clear, Normal Breath Sounds, No Accessory Muscle Use, Other (obvious deformity and ecchymosis over the left clavicle) Cardiovascular: Normal Peripheral Pulses, Regular Rate, Rhythm, No Edema, No Gallop, No JVD, No Murmur, No Rub Peripheral Pulses: 2+: Radial (L), Radial (R) GI/Abdominal: Normal Bowel Sounds, Soft, Non-Tender (Male) Exam: Deferred Rectal (Males) Exam: Deferred Back Exam: Normal Inspection, Decreased Range of Motion Extremities: Arm Pain (left upper arm pain), Limited Range of Motion (left arm) Neurological: Alert Psychiatric: Normal Affect, Normal Mood Skin Exam: Warm, Dry, Intact, No Rash, Ecchymosis (left clavicle), Erythema ( center of the forehead) Lymphatic: No Adenopathy Course - Vital Signs Last Recorded V/S: Last Vital Signs Temp 98.4 F 11/29/18 02:28 Pulse 70 11/29/18 02:28 Resp 18 11/29/18 02:28 BP 150/85 H 11/29/18 02:28 Pulse Ox 99 11/29/18 02:28 - Radiology Interpretation Free Text/Narrative:: Left humerus xray: FINDINGS: Bones/joints: Comminuted displaced fracture of the distal left clavicle. No dislocation. Displaced fracture of the left seventh lateral rib. Soft tissues: No radiopaque foreign body. IMPRESSION: 1. Comminuted displaced fracture of the distal left clavicle. No dislocation. 2. Displaced fracture of the left seventh lateral rib. Thank you for allowing us to participate in the care of your patient. Dictated and Authenticated by: Tomasz Rea MD 11/29/2018 3:44 AM Central Time ([place] & [place]) Head CT: FINDINGS: Brain: Age-related involutional changes and chronic microvascular ischemic disease. 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 No evidence for acute transcortical infarct. No mass effect or midline shift. No extra-axial collection. No acute intracranial hemorrhage. Basal cisterns are patent. Ventricles: Normal. No ventriculomegaly. Bones/joints: Unremarkable. No acute fracture. Sinuses: Visualized sinuses are unremarkable. No acute sinusitis. Mastoid air cells: Visualized mastoid air cells are unremarkable. No mastoid effusion. Orbits: Bilateral cataract surgery. Soft tissues: Unremarkable. IMPRESSION: No evidence for acute transcortical infarct, acute intracranial hemorrhage, or mass effect. Thank you for allowing us to participate in the care of your patient. Dictated and Authenticated by: Tomasz Rea MD 11/29/2018 3:41 AM Central Time ([place] & [place]) See rad report - Re-Assessments/Exams Free Text/Narrative Re-Assessment/Exam: 11/29/18 06:58 Patient case discussed with Dr. Wilson. He states the patient can wear a sling for comfort. Patient can be seen via telemedicine or in person in a couple of weeks. Departure - Departure Time of Disposition: 04:01 Disposition: DC/Tfer to [facility] Condition: Fair Clinical Impression: Fracture of clavicle Qualifiers: Encounter type: initial encounter Clavicle location: shaft Fracture type: closed Fracture alignment: displaced Laterality: left Qualified Code(s): S42.022A - Displaced fracture of shaft of left clavicle, initial encounter for closed fracture Rib fracture Qualifiers: Encounter type: initial encounter Rib fracture type: single rib Fracture type: closed Laterality: left Qualified Code(s): S22.32XA - Fracture of one rib, left side, initial encounter for closed fracture Fall at retirement Qualifiers: Encounter type: initial encounter Qualified Code(s): W19.XXXA - Unspecified fall, initial encounter - Discharge Information *PRESCRIPTION DRUG MONITORING PROGRAM REVIEWED*: No *COPY OF PRESCRIPTION DRUG MONITORING REPORT IN PATIENT MATHEUS: No Instructions: Clavicle Fracture, [id number], How to Use a Sling, [id number] , Rib Fracture, [id number] Referrals: PCP,None [Ordering Only Provider] - Forms: ED Department Discharge Additional Instructions: Ice to the area as tolerated Tylenol as directed/ordered for pain Follow up with ortho (Chely will call with further instructions once she talks to Dr. Wilson). Wear sling at all times
== END 2018-11-29 04:18 ==
LOC: DL.ED 01:14
DX: S42.022A Displaced fracture of shaft of left clavicle, initial encounter for closed fracture (principal); S22.32XA Fracture of one rib, left side, initial encounter for closed fracture; I10 Essential (primary) hypertension; Z88.8 Allergy status to other drugs, medicaments and biological substances; Z79.82 Long term (current) use of aspirin; Z79.899 Other long term (current) drug therapy; W19.XXXA Unspecified fall, initial encounter
CPT/HCPCS: 70450; 73060-LT; 99284-25